=== PATIENT | female | born 1945 | race Caucasian/White ===

== ENCOUNTER 2017-11-06 17:45 | Emergency (ER) | payer MEDICARE ==
[2017-11-06 18:40] LABS: ADD MAN DIFF? NO
[2017-11-06 18:44] LABS: BASO # 0.1 x10^3/uL (0.0-0.2); BASO % 1 % (0-3); EOS # 0.2 x10^3/uL (0.0-0.7); EOS % 3 % (0-3); HEMATOCRIT 40.1 % (36.0-47.0); HEMOGLOBIN 13.7 g/dL (12.0-15.5); LYMPH # 2.2 x10^3/uL (1.0-4.8); LYMPH % 35 % (24-48); MEAN CORPUSCULAR HEMOGLOBIN 32 pg (25-35); MEAN CORPUSCULAR HGB CONC 34 g/dL (31-37); MEAN CORPUSCULAR VOLUME 93 fL (79-100); MONO # 0.5 x10^3/uL (0.0-1.1); MONO % 8 % (0-9); NEUT # 3.3 x10^3uL (1.8-7.7); NEUT % 53 % (31-73); PLATELET COUNT 270 x10^3/uL (140-400); RED BLOOD COUNT 4.29 x10^6/uL (3.50-5.40); RED CELL DISTRIBUTION WIDTH 14.3 % (11.5-14.5); WHITE BLOOD COUNT 6.4 x10^3/uL (4.0-11.0)
[2017-11-06 18:53] LABS: ANION GAP 11 (6-14); BLOOD UREA NITROGEN 25 mg/dL (7-20); BUN/CREATININE RATIO 28 (6-20); CALCIUM 9.2 mg/dL (8.5-10.1); CARBON DIOXIDE 27 mmol/L (21-32); CHLORIDE 104 mmol/L (98-107); CREATININE 0.9 mg/dL (0.6-1.0); GFR 61.7; GLUCOSE 95 mg/dL (70-99); POTASSIUM 3.6 mmol/L (3.5-5.1); SODIUM 142 mmol/L (136-145)
[2017-11-06 18:56] LABS: PARTIAL THROMBOPLASTIN TIME 35 SEC (24-38); PROTHROMBIN TIME PATIENT 12.9 SEC (11.7-14.0)
[2017-11-06 19:01] LABS: ALBUMIN 3.7 g/dL (3.4-5.0); ALBUMIN/GLOBULIN RATIO 1.1 (1.0-1.7); ALK PHOS 56 U/L (46-116); ALT (SGPT) 29 U/L (14-59); AST (SGOT) 24 U/L (15-37); MAGNESIUM 2.2 mg/dL (1.8-2.4); TOTAL BILIRUBIN 0.3 mg/dL (0.2-1.0); TOTAL PROTEIN 7.2 g/dL (6.4-8.2)
[2017-11-06 19:01] LABS: TROPONINI < 0.017 ng/mL (0.000-0.055)
[2017-11-06 19:07] LABS: CKMB INDEX 3.8 % (0-4); CKMB MASS 5.5 ng/mL (0.0-3.6); CREATINE KINASE 144 U/L (26-192)
== END 2017-11-06 20:09 | disposition home or self-care (01) ==
LOC: ER 17:45
DX: I10 Essential (primary) hypertension (principal); Z88.0 Allergy status to penicillin
CPT/HCPCS: 36415; 80053; 82553; 83735; 84484; 85025; 85610; 85730; 93005; 99285-25

== ENCOUNTER 2019-11-15 21:31 | Inpatient (IN) | payer MEDICARE ==
[~2019-11-15] VITALS: Ht 157.5 cm; Wt 49.7 kg
[2019-11-15 21:59] LABS: BASO # 0.1 x10^3/uL (0.0-0.2); BASO % 2 % (0-3); EOS # 0.3 x10^3/uL (0.0-0.7); EOS % 5 % (0-3); HEMATOCRIT 36.2 % (36.0-47.0); HEMOGLOBIN 12.1 g/dL (12.0-15.5); LYMPH # 1.9 x10^3/uL (1.0-4.8); LYMPH % 35 % (24-48); MEAN CORPUSCULAR HEMOGLOBIN 31 pg (25-35); MEAN CORPUSCULAR HGB CONC 34 g/dL (31-37); MEAN CORPUSCULAR VOLUME 93 fL (79-100); MONO # 0.5 x10^3/uL (0.0-1.1); MONO % 10 % (0-9); NEUT # 2.6 x10^3/uL (1.8-7.7); NEUT % 48 % (31-73); PLATELET COUNT 315 x10^3/uL (140-400); RED BLOOD COUNT 3.88 x10^6/uL (3.50-5.40); RED CELL DISTRIBUTION WIDTH 14.1 % (11.5-14.5); WHITE BLOOD COUNT 5.4 x10^3/uL (4.0-11.0)
[2019-11-15] MEDS ORDERED: ONDANSETRON PF 4 MG/2 ML VIAL. IVP ONE (22:00)
[2019-11-15] MEDS ORDERED: MORPHINE SULFATE 2 MG/ML VIAL. IV ONE (22:00)
[2019-11-15 22:09] LABS: CALCIUM 8.5 mg/dL (8.5-10.1); CREATININE 0.9 mg/dL (0.6-1.0); GFR 61.4; POTASSIUM 3.9 mmol/L (3.5-5.1)
[2019-11-15 22:11] LABS: PROTHROMBIN TIME PATIENT 12.4 SEC (11.7-14.0)
[2019-11-15 22:14] LABS: ALBUMIN 3.2 g/dL (3.4-5.0); TOTAL BILIRUBIN 0.2 mg/dL (0.2-1.0); TOTAL PROTEIN 6.4 g/dL (6.4-8.2)
--- NOTE | 2019-11-15 22:16 | PHYS DOC ---
Past Medical History Past Medical History: Hypertension Past Surgical History: Appendectomy, Hysterectomy, Other Additional Past Surgical Histo: L wrist frx repair Smoking Status: Current Every Day Smoker Alcohol Use: Rarely Drug Use: None General Adult EDM: Chief Complaint: MECHANICAL FALL HPI: HPI: Patient is a 74 year old female who presents with a mechanical fall and injury to left hip. Patient says she lost her balance and fell and hit her left hip. Patient did not hit her head or loss of consciousness. Patient complains of moderate at rest and severe in intensity left hip pain with range of motion. Pain is nonradiating. Pain is described as throbbing. No other injuries. Review of Systems: Review of Systems: Constitutional: Denies fever or chills. [] Eyes: Denies change in visual acuity. [] HENT: Denies nasal congestion or sore throat. [] Respiratory: Denies cough or shortness of breath. [] Cardiovascular: Denies chest pain or edema. [] GI: Denies abdominal pain, nausea, vomiting, bloody stools or diarrhea. [] : Denies dysuria. [] Musculoskeletal: Denies back pain but complains of left hip pain Integument: Denies rash. [] Neurologic: Denies headache, focal weakness or sensory changes. [] Endocrine: Denies polyuria or polydipsia. [] Lymphatic: Denies swollen glands. [] Psychiatric: Denies depression or anxiety. [] Heart Score: Risk Factors: Risk Factors: DM, Current or recent (<one month) smoker, HTN, HLP, family history of CAD, obesity. Risk Scores: Score 0 - 3: 2.5% MACE over next 6 weeks - Discharge Home Score 4 - 6: 20.3% MACE over next 6 weeks - Admit for Clinical Observation Score 7 - 10: 72.7% MACE over next 6 weeks - Early Invasive Strategies Current Medications: Current Medications Medications (Trade) Dose Ordered Sig/Scott Start Time Stop Time Status Last Admin Dose Admin Morphine Sulfate (Morphine Sulfate) 2 mg 1X ONCE 11/15/19 22:00 11/15/19 22:01 DC Ondansetron HCl (Zofran) 4 mg 1X ONCE 11/15/19 22:00 11/15/19 22:01 DC Allergies: Allergies: Allergies Coded Allergies Type Severity Reaction Last Updated Verified Penicillins Allergy Intermediate hives 11/06/17 Yes Physical Exam: PE: Constitutional: Well developed, well nourished, no acute distress, non-toxic appearance. [] HENT: Normocephalic, atraumatic, bilateral external ears normal, no trismus, nose normal. [] Eyes: PERRLA, EOMI, conjunctiva normal, no discharge. [] Neck: Normal range of motion, no tenderness, supple, no stridor. [] Cardiovascular:Heart rate regular rhythm, peripheral pulses intact Lungs & Thorax: Bilateral breath sounds clear to auscultation [] Abdomen: Bowel sounds normal, soft, no tenderness, no masses, no pulsatile rafi s. [] Skin: Warm, dry, no erythema, no rash. [] Back: No tenderness, no CVA tenderness. [] Extremities: Tenderness and limited range of motion to the left neurovascular intact distally Neurologic: Alert and oriented X 3, normal motor function, normal sensory function, no focal deficits noted. [] Psychologic: Affect normal, judgement normal, mood normal. [] Current Patient Data: Labs: Laboratory Tests Test 11/15/19 21:40 White Blood Count 5.4 x10^3/uL (4.0-11.0) Red Blood Count 3.88 x10^6/uL (3.50-5.40) Hemoglobin 12.1 g/dL (12.0-15.5) Hematocrit 36.2 % (36.0-47.0) Mean Corpuscular Volume 93 fL (79-100) Mean Corpuscular Hemoglobin 31 pg (25-35) Mean Corpuscular Hemoglobin Concent 34 g/dL (31-37) Red Cell Distribution Width 14.1 % (11.5-14.5) Platelet Count 315 x10^3/uL (140-400) Neutrophils (%) (Auto) 48 % (31-73) Lymphocytes (%) (Auto) 35 % (24-48) Monocytes (%) (Auto) 10 % (0-9) H Eosinophils (%) (Auto) 5 % (0-3) H Basophils (%) (Auto) 2 % (0-3) Neutrophils # (Auto) 2.6 x10^3/uL (1.8-7.7) Lymphocytes # (Auto) 1.9 x10^3/uL (1.0-4.8) Monocytes # (Auto) 0.5 x10^3/uL (0.0-1.1) Eosinophils # (Auto) 0.3 x10^3/uL (0.0-0.7) Basophils # (Auto) 0.1 x10^3/uL (0.0-0.2) Prothrombin Time 12.4 SEC (11.7-14.0) Prothrombin Time INR 1.0 (0.8-1.1) Activated Partial Thromboplast Time 31 SEC (24-38) Sodium Level 144 mmol/L (136-145) Potassium Level 3.9 mmol/L (3.5-5.1) Chloride Level 109 mmol/L (98-107) H Carbon Dioxide Level 27 mmol/L (21-32) Anion Gap 8 (6-14) Blood Urea Nitrogen 24 mg/dL (7-20) H Creatinine 0.9 mg/dL (0.6-1.0) Estimated GFR (Cockcroft-Gault) 61.4 BUN/Creatinine Ratio 27 (6-20) H Glucose Level 105 mg/dL (70-99) H Calcium Level 8.5 mg/dL (8.5-10.1) Total Bilirubin Pending Aspartate Amino Transferase (AST) Pending Alanine Aminotransferase (ALT) Pending Alkaline Phosphatase Pending Total Protein Pending Albumin Pending Albumin/Globulin Ratio Pending Laboratory Tests 11/15/19 21:40 Laboratory Tests 11/15/19 21:40 Vital Signs: Vital Signs Date Time Temp Pulse Resp B/P (MAP) Pulse Ox O2 Delivery O2 Flow Rate FiO2 11/15/19 22:40 24 97 Room Air 11/15/19 21:35 81 22 161/86 (111) 98 Room Air EKG: EKG: [] EKG interpreted by pr normal sinus rhythm with a rate of 83 normal axis normal intervals normal ST segments Radiology/Procedures: Radiology/Procedures: [][facility] [address] [place] [address] IMAGING REPORT Signed PATIENT: EDMAR LUZ ACCOUNT: [id number] : 1945 LOCATION: ER AGE: 74 SEX: F EXAM STATUS: REG ER ORD. PHYSICIAN: ALVAREZ HALL MD REASON: fall PROCEDURE: HIP LEFT 2V WITH PELVIS Exam: Pelvis with left hip 2 views. Left femur 2 views INDICATION: Fall TECHNIQUE: Frontal view of the pelvis with frontal and frog-leg lateral views the left hip. Frontal and lateral views the left femur Comparisons: None FINDINGS: There is a comminuted intertrochanteric left hip fracture. Overlying soft tissues demonstrates some soft tissue swelling. No other fractures are seen. Bone mineralization is normal. Joint spaces are well-maintained. Femur: Redemonstration of the comminuted intertrochanteric hip fracture. Otherwise, no other fractures are seen. Joint spaces are well-maintained. Soft tissues are unremarkable. IMPRESSION: 1. Comminuted intertrochanteric left hip fracture. 2. No other fracture identified at the pelvis or left femur. Electronically signed by: Samira Mena MD (11/15/2019 10:27 PM) [id number] DICTATED and SIGNED BY: SAMIRA MENA MD DATE: 11/15/192226 [facility] [address] [place] [address] IMAGING REPORT Signed PATIENT: EDMAR LUZ ACCOUNT: [id number] : 1945 LOCATION: ER AGE: 74 SEX: F EXAM STATUS: REG ER ORD. PHYSICIAN: ALVAREZ HALL MD REASON: fall PROCEDURE: PORTABLE CHEST 1V Exam: Chest one view INDICATION: Fall TECHNIQUE: Frontal view of the chest Comparisons: None FINDINGS: The cardiomediastinal silhouette and pulmonary vessels are within normal limits. The lung and pleural spaces are clear. IMPRESSION: No acute cardiopulmonary process. Electronically signed by: Samira Mena MD (11/15/2019 10:28 PM) [id number] DICTATED and SIGNED BY: SAMIRA MENA MD DATE: 11/15/192227 Course & Med Decision Making: Course & Med Decision Making Pertinent Labs and Imaging studies reviewed. (See chart for details) [] 74-year-old female presents with mechanical fall. Patient has a intertrochanteric hip fracture on the left. Patient will be admitted to Dr. Gabriel, has been consulted. Kimmie Disclaimer: Kimmie Disclaimer: This electronic medical record was generated, in whole or in part, using a voice recognition dictation system. Departure Departure Impression: Primary Impression: Intertrochanteric fracture of left femur Disposition: ADMITTED INPATIENT Admitting Physician: MALDONADO WALTERS) Condition: STABLE Referrals: UNKNOWN PCP NAME (PCP) Justicifation of Admission Dx: Justifications for Admission: Justification of Admission Dx: Yes ALVAREZ HALL MD Nov 15, 2019 22:16
[2019-11-15] MEDS ORDERED: ONDANSETRON PF 4 MG/2 ML VIAL. IV PRN (22:30)
--- NOTE | 2019-11-15 22:31 | RAD ---
Exam: Pelvis with left hip 2 views. Left femur 2 views INDICATION: Fall TECHNIQUE: Frontal view of the pelvis with frontal and frog-leg lateral views the left hip. Frontal and lateral views the left femur Comparisons: None FINDINGS: There is a comminuted intertrochanteric left hip fracture. Overlying soft tissues demonstrates some soft tissue swelling. No other fractures are seen. Bone mineralization is normal. Joint spaces are well-maintained. Femur: Redemonstration of the comminuted intertrochanteric hip fracture. Otherwise, no other fractures are seen. Joint spaces are well-maintained. Soft tissues are unremarkable. IMPRESSION: 1. Comminuted intertrochanteric left hip fracture. 2. No other fracture identified at the pelvis or left femur. Electronically signed by: Samira Blackburn MD (11/15/2019 10:27 PM) [id number]
--- NOTE | 2019-11-15 22:31 | RAD ---
Exam: Chest one view INDICATION: Fall TECHNIQUE: Frontal view of the chest Comparisons: None FINDINGS: The cardiomediastinal silhouette and pulmonary vessels are within normal limits. The lung and pleural spaces are clear. IMPRESSION: No acute cardiopulmonary process. Electronically signed by: Samira Blackburn MD (11/15/2019 10:28 PM) [id number]
[2019-11-15] MEDS ORDERED: amLODIPine BESYLATE 5 MG TABLET PO ONE (23:00)
[2019-11-15] MEDS ORDERED: LISINOPRIL 10 MG TABLET PO ONE (23:00)
[2019-11-16] VITALS (12 sets, daily range): BP systolic 82–132; BP diastolic 34–62
--- NOTE | 2019-11-16 00:20 | NUR ---
The patient, EDMAR LUZ, 74 y/o, F admitted by SARKIS CARDENAS MD, was given written information regarding hospital policies, unit procedures and contact persons. Patient admitted with left hip communicated intertrochanteric fracture. Bond traction applied as per order. Patient denies pain at this time. Patient alert and oriented x 4. Patient oriented to room, call light, bed and POC. Call light in reach, Patient verbalized understanding of need to call for help. See admission assessment/documentation. Valuables were checked and documented.
[2019-11-16] MEDS: IV NORMAL SALINE 1000ML BAG 1,000 ML IV SCH ×4 (02:29→19:00)
[2019-11-16] MEDS: MORPHINE SULFATE 2 MG/ML VIAL. IV PRN ×2 (02:40→06:55)
--- NOTE | 2019-11-16 07:02 | PDOC2 ---
CONSULT Date of Consult Date of Consult DATE: 11/16/19 TIME: 07:00 Reason for Consult Reason for Consult: Left hip pain, left hip fracture Identification/Chief Complaint Chief Complaint Left hip pain after a fall Source Source: Chart review, Patient History of Present Illness Reason for Visit: This 74-year-old woman was at home, and simply slipped and fell. No loss of consciousness or head injury. She landed on her back and hip, had immediate hip pain, was brought to the emergency room. X-rays show an intertrochanteric hip fracture with comminution. She uses a cane but does not use a walker. She was here with her and with her daughter. She had no complaints except for the hip pain. Pain is described as throbbing and is worse with any attempted motion. Past Medical History Past Medical History She was a smoker for many years but quit in September 2018. She was diagnosed with COPD, and at that time she also had pneumonia. Pulmonary: COPD Past Surgical History Past Surgical History Wrist fracture surgery. Past Surgical History: Hysterectomy Social History Social History She quit smoking last year. She lives at home with her . Quit Lives: with Family Current Problem List Problem List Problems Medical Problems: (1) Intertrochanteric fracture of left femur Status: Acute Current Medications Current Medications Current Medications Morphine Sulfate (Morphine Sulfate) 2 mg 1X ONCE IV Last administered on 11/15/19at 22:40; Start 11/15/19 at 22:00; Stop 11/15/19 at 22:01; Status DC Ondansetron HCl (Zofran) 4 mg 1X ONCE IVP Last administered on 11/15/19at 22:37; Start 11/15/19 at 22:00; Stop 11/15/19 at 22:01; Status DC Lisinopril (Prinivil) 40 mg 1X ONCE PO ; Start 11/15/19 at 23:00; Stop 11/15/19 at 23:01; Status DC Amlodipine Besylate (Norvasc) 5 mg 1X ONCE PO ; Start 11/15/19 at 23:00; Stop 11/15/19 at 23:01; Status DC Ondansetron HCl (Zofran) 4 mg PRN Q8HRS PRN IV NAUSEA/VOMITING 1ST CHOICE; Start 11/15/19 at 22:30; Stop 11/16/19 at 22:29 Morphine Sulfate (Morphine Sulfate) 2 mg PRN Q2HR PRN IV SEVERE PAIN 7-10 Last administered on 11/16/19at 06:55; Start 11/15/19 at 22:30; Stop 11/16/19 at 22:29 Sodium Chloride 1,000 ml @ 100 mls/hr Q10H IV Last administered on 11/16/19at 02:29; Start 11/15/19 at 23:00; Stop 11/16/19 at 22:59 Allergies Allergies: Coded Allergies: Penicillins (Verified Allergy, Intermediate, hives, 11/06/17) naproxen (Verified Adverse Reaction, Unknown, 11/16/19) ROS General: No: Night Sweats, Fatigue PSYCHOLOGICAL ROS: No: Disorientation Eyes: No Double vision HEENT: No: Heacaches Hematological and Lymphatic: No: Blood Clots Respiratory: No: Cough, Shortness of breath, SOB with excertion Cardiovascular: No Chest Pain Gastrointestinal: Yes Diarrhea (She takes some sort of oral supplement or medication to help prevent diarrhea); No Nausea, No Vomiting Genitourinary: No Dysuria, No Hematuria Musculoskeletal: Yes Gait Disturbance, Yes Joint Pain Neurological: No Confusion Physical Exam General: Alert, Cooperative HEENT: Atraumatic Lungs: Normal air movement Heart: Regular rate Abdomen: Soft Extremities: No clubbing, No cyanosis, Normal pulses, Other (There is tenderness of the left hip. There is pain with any attempted motion. The skin is intact without ecchymosis. The extremity is shortened and externally rotated. Light touch sensation is intact at the foot and toes. Capillary refill and pulses are intact without evidence of ischemia. Slight dorsiflexion and plantarflexion are possible without evidence of sciatic nerve injury.) Skin: No significant lesion Neuro: Normal speech, Normal tone, Sensation intact Psych/Mental Status: Mood NL Vitals VITALS Vital Signs Date Time Temp Pulse Resp B/P (MAP) Pulse Ox O2 Delivery O2 Flow Rate FiO2 11/16/19 06:55 18 Room Air 11/16/19 03:00 98.6 80 109/46 (67) 94 98.6 Labs Labs Laboratory Tests Test 11/15/19 21:40 11/15/19 22:45 White Blood Count 5.4 x10^3/uL (4.0-11.0) Red Blood Count 3.88 x10^6/uL (3.50-5.40) Hemoglobin 12.1 g/dL (12.0-15.5) Hematocrit 36.2 % (36.0-47.0) Mean Corpuscular Volume 93 fL (79-100) Mean Corpuscular Hemoglobin 31 pg (25-35) Mean Corpuscular Hemoglobin Concent 34 g/dL (31-37) Red Cell Distribution Width 14.1 % (11.5-14.5) Platelet Count 315 x10^3/uL (140-400) Neutrophils (%) (Auto) 48 % (31-73) Lymphocytes (%) (Auto) 35 % (24-48) Monocytes (%) (Auto) 10 % (0-9) Eosinophils (%) (Auto) 5 % (0-3) Basophils (%) (Auto) 2 % (0-3) Neutrophils # (Auto) 2.6 x10^3/uL (1.8-7.7) Lymphocytes # (Auto) 1.9 x10^3/uL (1.0-4.8) Monocytes # (Auto) 0.5 x10^3/uL (0.0-1.1) Eosinophils # (Auto) 0.3 x10^3/uL (0.0-0.7) Basophils # (Auto) 0.1 x10^3/uL (0.0-0.2) Prothrombin Time 12.4 SEC (11.7-14.0) Prothromb Time International Ratio 1.0 (0.8-1.1) Activated Partial Thromboplast Time 31 SEC (24-38) Sodium Level 144 mmol/L (136-145) Potassium Level 3.9 mmol/L (3.5-5.1) Chloride Level 109 mmol/L (98-107) Carbon Dioxide Level 27 mmol/L (21-32) Anion Gap 8 (6-14) Blood Urea Nitrogen 24 mg/dL (7-20) Creatinine 0.9 mg/dL (0.6-1.0) Estimated GFR (Cockcroft-Gault) 61.4 BUN/Creatinine Ratio 27 (6-20) Glucose Level 105 mg/dL (70-99) Calcium Level 8.5 mg/dL (8.5-10.1) Total Bilirubin 0.2 mg/dL (0.2-1.0) Aspartate Amino Transf (AST/SGOT) 21 U/L (15-37) Alanine Aminotransferase (ALT/SGPT) 34 U/L (14-59) Alkaline Phosphatase 49 U/L (46-116) Total Protein 6.4 g/dL (6.4-8.2) Albumin 3.2 g/dL (3.4-5.0) Albumin/Globulin Ratio 1.0 (1.0-1.7) SARS-CoV-2 Antigen (Rapid) Negative (NEGATIVE) Laboratory Tests Test 11/15/19 21:40 11/15/19 22:45 White Blood Count 5.4 x10^3/uL (4.0-11.0) Red Blood Count 3.88 x10^6/uL (3.50-5.40) Hemoglobin 12.1 g/dL (12.0-15.5) Hematocrit 36.2 % (36.0-47.0) Mean Corpuscular Volume 93 fL (79-100) Mean Corpuscular Hemoglobin 31 pg (25-35) Mean Corpuscular Hemoglobin Concent 34 g/dL (31-37) Red Cell Distribution Width 14.1 % (11.5-14.5) Platelet Count 315 x10^3/uL (140-400) Neutrophils (%) (Auto) 48 % (31-73) Lymphocytes (%) (Auto) 35 % (24-48) Monocytes (%) (Auto) 10 % (0-9) Eosinophils (%) (Auto) 5 % (0-3) Basophils (%) (Auto) 2 % (0-3) Neutrophils # (Auto) 2.6 x10^3/uL (1.8-7.7) Lymphocytes # (Auto) 1.9 x10^3/uL (1.0-4.8) Monocytes # (Auto) 0.5 x10^3/uL (0.0-1.1) Eosinophils # (Auto) 0.3 x10^3/uL (0.0-0.7) Basophils # (Auto) 0.1 x10^3/uL (0.0-0.2) Prothrombin Time 12.4 SEC (11.7-14.0) Prothromb Time International Ratio 1.0 (0.8-1.1) Activated Partial Thromboplast Time 31 SEC (24-38) Sodium Level 144 mmol/L (136-145) Potassium Level 3.9 mmol/L (3.5-5.1) Chloride Level 109 mmol/L (98-107) Carbon Dioxide Level 27 mmol/L (21-32) Anion Gap 8 (6-14) Blood Urea Nitrogen 24 mg/dL (7-20) Creatinine 0.9 mg/dL (0.6-1.0) Estimated GFR (Cockcroft-Gault) 61.4 BUN/Creatinine Ratio 27 (6-20) Glucose Level 105 mg/dL (70-99) Calcium Level 8.5 mg/dL (8.5-10.1) Total Bilirubin 0.2 mg/dL (0.2-1.0) Aspartate Amino Transf (AST/SGOT) 21 U/L (15-37) Alanine Aminotransferase (ALT/SGPT) 34 U/L (14-59) Alkaline Phosphatase 49 U/L (46-116) Total Protein 6.4 g/dL (6.4-8.2) Albumin 3.2 g/dL (3.4-5.0) Albumin/Globulin Ratio 1.0 (1.0-1.7) SARS-CoV-2 Antigen (Rapid) Negative (NEGATIVE) Images Images Report reviewed, images independently reviewed. Slightly displaced left hip intertrochanteric fracture. Some comminution. [facility] [address] [place] [address] IMAGING REPORT Signed PATIENT: EDMAR LUZ ACCOUNT: [id number] : 1945 LOCATION: ER AGE: 74 SEX: F EXAM STATUS: REG ER ORD. PHYSICIAN: ALVAREZ HALL MD REASON: fall PROCEDURE: HIP LEFT 2V WITH PELVIS Exam: Pelvis with left hip 2 views. Left femur 2 views INDICATION: Fall TECHNIQUE: Frontal view of the pelvis with frontal and frog-leg lateral views the left hip. Frontal and lateral views the left femur Comparisons: None FINDINGS: There is a comminuted intertrochanteric left hip fracture. Overlying soft tissues demonstrates some soft tissue swelling. No other fractures are seen. Bone mineralization is normal. Joint spaces are well-maintained. Femur: Redemonstration of the comminuted intertrochanteric hip fracture. Otherwise, no other fractures are seen. Joint spaces are well-maintained. Soft tissues are unremarkable. IMPRESSION: 1. Comminuted intertrochanteric left hip fracture. 2. No other fracture identified at the pelvis or left femur. Electronically signed by: Samira Mena MD (11/15/2019 10:27 PM) [id number] DICTATED and SIGNED BY: SAMIAR MENA MD DATE: 11/15/192226 Assessment/Plan Assessment/Plan We discussed operative versus nonoperative management. I recommend surgery with intramedullary nail. The alternative to surgery is bedrest which is generally not well tolerated and has high risks of continued pain, bedsores, pneumonia, and blood clots. Surgery is likely safer than nonoperative treatment. Risks of intramedullary nailing would include malunion, nonunion or hardware failure requiring additional surgery, bleeding, blood clots, neurovascular injury, or other potential surgical or anesthetic complications. All of her questions about surgery were answered and she desires to proceed. CAROLYNN RUFF MD Nov 16, 2019 07:02
--- NOTE | 2019-11-16 07:41 | EKG ---
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
[2019-11-16 07:43] LABS: PROTHROMBIN TIME PATIENT 13.2 SEC (11.7-14.0)
--- NOTE | 2019-11-16 07:48 | NUR ---
Unknown action on meds dated 11/14 at 2300. Meds removed from JUN.
--- NOTE | 2019-11-16 09:35 | NUR ---
SW following. Discussed with RN, pt from home with , having surgery today. RN reported pt had stated she would prefer to go home with home health at discharge. SW will continue to follow.
[2019-11-16] MEDS ORDERED: LIDOCAINE 2% PF 5 ML VIAL. ONE (10:51)
[2019-11-16] MEDS ORDERED: PROPOFOL 10 MG/ML (20ML) VIAL. IV ONE ×2 (10:51→12:02)
[2019-11-16] MEDS ORDERED: fentaNYL PF VIAL 100 MCG/2 ML VIAL ONE ×2 (10:51→13:59)
--- NOTE | 2019-11-16 11:27 | PDOC1 ---
History and Physical Date of Admission Date of Admission DATE: 11/16/19 TIME: 11:26 Identification/Chief Complaint Chief Complaint SEEN IN ER WITH ACUTE HIP FRACTURE 74 year old female who presents with a mechanical fall and injury to left hip. // she lost her balance and fell and hit her left hip. Patient did not hit her head or loss of consciousness. complains of moderate at rest and severe in intensity left hip pain with range of motion. Pain is described as throbbing. No other injuries. Past Medical History Past Medical History Past Medical History Past Medical History: Hypertension Past Surgical History: Appendectomy, Hysterectomy, Other Additional Past Surgical Histo: L wrist frx repair Smoking Status: Current Every Day Smoker Alcohol Use: Rarely Drug Use: None fhx copd, HTN Cardiovascular: HTN Endocrine: No pertinent hx Family History Family History: Hypertension Social History Smoke: <1 pack per day ALCOHOL: occassional Drugs: None Current Problem List Problem List Problems Medical Problems: (1) Intertrochanteric fracture of left femur Status: Acute Current Medications Current Medications Current Medications Morphine Sulfate (Morphine Sulfate) 2 mg 1X ONCE IV Last administered on 11/15/19at 22:40; Start 11/15/19 at 22:00; Stop 11/15/19 at 22:01; Status DC Ondansetron HCl (Zofran) 4 mg 1X ONCE IVP Last administered on 11/15/19at 22:37; Start 11/15/19 at 22:00; Stop 11/15/19 at 22:01; Status DC Lisinopril (Prinivil) 40 mg 1X ONCE PO ; Start 11/15/19 at 23:00; Stop 11/15/19 at 23:01; Status DC Amlodipine Besylate (Norvasc) 5 mg 1X ONCE PO ; Start 11/15/19 at 23:00; Stop 11/15/19 at 23:01; Status DC Ondansetron HCl (Zofran) 4 mg PRN Q8HRS PRN IV NAUSEA/VOMITING 1ST CHOICE; Start 11/15/19 at 22:30; Stop 11/16/19 at 22:29 Morphine Sulfate (Morphine Sulfate) 2 mg PRN Q2HR PRN IV SEVERE PAIN 7-10 Last administered on 11/16/19at 06:55; Start 11/15/19 at 22:30; Stop 11/16/19 at 22:29 Sodium Chloride 1,000 ml @ 100 mls/hr Q10H IV Last administered on 11/16/19at 02 :29; Start 11/15/19 at 23:00; Stop 11/16/19 at 22:59 Morphine Sulfate 5 mg/Ketorolac Tromethamine 30 mg/Ropivacaine 60 ml/Epinephrine HCl 0.5 mg/Sodium Chloride 100 ml @ 100 mls/hr 1X ONCE INT ART ; Start 11/16/19 at 12:00; Stop 11/16/19 at 12:59 Propofol (Diprivan) 200 mg STK-MED ONCE IV ; Start 11/16/19 at 10:51; Stop 11/16/19 at 10:51; Status DC Lidocaine HCl (Lidocaine Pf 2% Vial) 5 ml STK-MED ONCE .ROUTE ; Start 11/16/19 at 10:51; Stop 11/16/19 at 10:51; Status DC Fentanyl Citrate (Fentanyl 2ml Vial) 100 mcg STK-MED ONCE .ROUTE ; Start 11/16/19 at 10:51; Stop 11/16/19 at 10:51; Status DC Allergies Allergies: Coded Allergies: Penicillins (Verified Allergy, Intermediate, hives, 11/06/17) naproxen (Verified Adverse Reaction, Unknown, 11/16/19) ROS Review of System Review of Systems: Constitutional: Denies fever or chills. [] Eyes: Denies change in visual acuity. [] HENT: Denies nasal congestion or sore throat. [] Respiratory: Denies cough or shortness of breath. [] Cardiovascular: Denies chest pain or edema. [] GI: Denies abdominal pain, nausea, vomiting, bloody stools or diarrhea. [] : Denies dysuria. [] Musculoskeletal: Denies back pain but complains of left hip pain Integument: Denies rash. [] Neurologic: Denies headache, focal weakness or sensory changes. [] Endocrine: Denies polyuria or polydipsia. [] Lymphatic: Denies swollen glands. [] Psychiatric: Denies depression or anxiety. [] 14 PT ROS OTHERWISE NEG Musculoskeletal: Yes Gait Disturbance, Yes Joint Pain Physical Exam Physical Exam Physical Exam: PE: Constitutional: Well developed, well nourished, no acute distress, non-toxic appearance. [] HENT: Normocephalic, atraumatic, bilateral external ears normal, no trismus, nose normal. [] Eyes: PERRLA, EOMI, conjunctiva normal, no discharge. [] Neck: Normal range of motion, no tenderness, supple, no stridor. [] Cardiovascular:Heart rate regular rhythm, peripheral pulses intact Lungs & Thorax: Bilateral breath sounds clear to auscultation [] Abdomen: Bowel sounds normal, soft, no tenderness, no masses, no pulsatile masses. [] Skin: Warm, dry, no erythema, no rash. [] Back: No tenderness, no CVA tenderness. [] Extremities: Tenderness and limited range of motion to the left neurovascular intact distally Neurologic: Alert and oriented X 3, normal motor function, normal sensory function, no focal deficits noted. [] Psychologic: Affect normal, judgement normal, mood normal. [] General: Alert, Oriented X3, Cooperative, No acute distress HEENT: EOMI, Mucous membr. moist/pink Lungs: Clear to auscultation, Normal air movement Heart: RRR Breasts: Not examined Abdomen: Normal bowel sounds, Soft Rectal Exam: not examined PELVIC: Examination not indicated Extremities: No cyanosis Neuro: Normal speech, Cranial nerves 3-12 NL Psych/Mental Status: Mental status NL, Mood NL Vitals Vitals Vital Signs Date Time Temp Pulse Resp B/P (MAP) Pulse Ox O2 Delivery O2 Flow Rate FiO2 11/16/19 10:57 100.0 17 18 132/62 (85) 96 Room Air 100.0 Labs Labs Laboratory Tests Test 11/15/19 21:40 11/15/19 22:45 11/16/19 07:20 White Blood Count 5.4 x10^3/uL (4.0-11.0) Red Blood Count 3.88 x10^6/uL (3.50-5.40) Hemoglobin 12.1 g/dL (12.0-15.5) Hematocrit 36.2 % (36.0-47.0) Mean Corpuscular Volume 93 fL (79-100) Mean Corpuscular Hemoglobin 31 pg (25-35) Mean Corpuscular Hemoglobin Concent 34 g/dL (31-37) Red Cell Distribution Width 14.1 % (11.5-14.5) Platelet Count 315 x10^3/uL (140-400) Neutrophils (%) (Auto) 48 % (31-73) Lymphocytes (%) (Auto) 35 % (24-48) Monocytes (%) (Auto) 10 % (0-9) Eosinophils (%) (Auto) 5 % (0-3) Basophils (%) (Auto) 2 % (0-3) Neutrophils # (Auto) 2.6 x10^3/uL (1.8-7.7) Lymphocytes # (Auto) 1.9 x10^3/uL (1.0-4.8) Monocytes # (Auto) 0.5 x10^3/uL (0.0-1.1) Eosinophils # (Auto) 0.3 x10^3/uL (0.0-0.7) Basophils # (Auto) 0.1 x10^3/uL (0.0-0.2) Prothrombin Time 12.4 SEC (11.7-14.0) 13.2 SEC (11.7-14.0) Prothromb Time International Ratio 1.0 (0.8-1.1) 1.0 (0.8-1.1) Activated Partial Thromboplast Time 31 SEC (24-38) Sodium Level 144 mmol/L (136-145) Potassium Level 3.9 mmol/L (3.5-5.1) Chloride Level 109 mmol/L (98-107) Carbon Dioxide Level 27 mmol/L (21-32) Anion Gap 8 (6-14) Blood Urea Nitrogen 24 mg/dL (7-20) Creatinine 0.9 mg/dL (0.6-1.0) Estimated GFR (Cockcroft-Gault) 61.4 BUN/Creatinine Ratio 27 (6-20) Glucose Level 105 mg/dL (70-99) Calcium Level 8.5 mg/dL (8.5-10.1) Total Bilirubin 0.2 mg/dL (0.2-1.0) Aspartate Amino Transf (AST/SGOT) 21 U/L (15-37) Alanine Aminotransferase (ALT/SGPT) 34 U/L (14-59) Alkaline Phosphatase 49 U/L (46-116) Total Protein 6.4 g/dL (6.4-8.2) Albumin 3.2 g/dL (3.4-5.0) Albumin/Globulin Ratio 1.0 (1.0-1.7) SARS-CoV-2 Antigen (Rapid) Negative (NEGATIVE) 25-Hydroxy Vitamin D Total 33.5 ng/mL (30-100) Laboratory Tests Test 11/15/19 21:40 11/15/19 22:45 11/16/19 07:20 White Blood Count 5.4 x10^3/uL (4.0-11.0) Red Blood Count 3.88 x10^6/uL (3.50-5.40) Hemoglobin 12.1 g/dL (12.0-15.5) Hematocrit 36.2 % (36.0-47.0) Mean Corpuscular Volume 93 fL (79-100) Mean Corpuscular Hemoglobin 31 pg (25-35) Mean Corpuscular Hemoglobin Concent 34 g/dL (31-37) Red Cell Distribution Width 14.1 % (11.5-14.5) Platelet Count 315 x10^3/uL (140-400) Neutrophils (%) (Auto) 48 % (31-73) Lymphocytes (%) (Auto) 35 % (24-48) Monocytes (%) (Auto) 10 % (0-9) Eosinophils (%) (Auto) 5 % (0-3) Basophils (%) (Auto) 2 % (0-3) Neutrophils # (Auto) 2.6 x10^3/uL (1.8-7.7) Lymphocytes # (Auto) 1.9 x10^3/uL (1.0-4.8) Monocytes # (Auto) 0.5 x10^3/uL (0.0-1.1) Eosinophils # (Auto) 0.3 x10^3/uL (0.0-0.7) Basophils # (Auto) 0.1 x10^3/uL (0.0-0.2) Prothrombin Time 12.4 SEC (11.7-14.0) 13.2 SEC (11.7-14.0) Prothromb Time International Ratio 1.0 (0.8-1.1) 1.0 (0.8-1.1) Activated Partial Thromboplast Time 31 SEC (24-38) Sodium Level 144 mmol/L (136-145) Potassium Level 3.9 mmol/L (3.5-5.1) Chloride Level 109 mmol/L (98-107) Carbon Dioxide Level 27 mmol/L (21-32) Anion Gap 8 (6-14) Blood Urea Nitrogen 24 mg/dL (7-20) Creatinine 0.9 mg/dL (0.6-1.0) Estimated GFR (Cockcroft-Gault) 61.4 BUN/Creatinine Ratio 27 (6-20) Glucose Level 105 mg/dL (70-99) Calcium Level 8.5 mg/dL (8.5-10.1) Total Bilirubin 0.2 mg/dL (0.2-1.0) Aspartate Amino Transf (AST/SGOT) 21 U/L (15-37) Alanine Aminotransferase (ALT/SGPT) 34 U/L (14-59) Alkaline Phosphatase 49 U/L (46-116) Total Protein 6.4 g/dL (6.4-8.2) Albumin 3.2 g/dL (3.4-5.0) Albumin/Globulin Ratio 1.0 (1.0-1.7) SARS-CoV-2 Antigen (Rapid) Negative (NEGATIVE) 25-Hydroxy Vitamin D Total 33.5 ng/mL (30-100) Images Images Exam: Pelvis with left hip 2 views. Left femur 2 views INDICATION: Fall TECHNIQUE: Frontal view of the pelvis with frontal and frog-leg lateral views the left hip. Frontal and lateral views the left femur Comparisons: None FINDINGS: There is a comminuted intertrochanteric left hip fracture. Overlying soft tissues demonstrates some soft tissue swelling. No other fractures are seen. Bone mineralization is normal. Joint spaces are well-maintained. Femur: Redemonstration of the comminuted intertrochanteric hip fracture. Otherwise, no other fractures are seen. Joint spaces are well-maintained. Soft tissues are unremarkable. IMPRESSION: 1. Comminuted intertrochanteric left hip fracture. 2. No other fracture identified at the pelvis or left femur. Electronically signed by: Bipin Mena MD (11/15/2019 10:27 PM) [id number] DICTATED and SIGNED BY: BIPIN MENA MD DATE: 11/15/192226 VTE Prophylaxis Ordered VTE Prophylaxis Devices: No VTE Pharmacological Prophylaxi: Yes Assessment/Plan Assessment/Plan IMPRESSION: 1. Comminuted intertrochanteric left hip fracture. 2. Mechanical fall 3. tobacco abuse disorder plan admit consult ortho iv fluid support npo iv pain control Justicifation of Admission Dx: Justifications for Admission: Justification of Admission Dx: Yes SARKIS CARDENAS MD Nov 16, 2019 11:27
[2019-11-16] MEDS ORDERED: MAG HYDROX/ALUMINUM HYD/SIMETH 30 ML ORAL.SUSP PO PRN (11:45)
[2019-11-16] MEDS ORDERED: ACETAMINOPHEN 325 MG TABLET. PO PRN (11:45)
[2019-11-16] MEDS ORDERED: SODIUM PHOSPHATES 19/7GM 133 ML ENEMA. PR PRN (11:45)
[2019-11-16] MEDS ORDERED: ACETAMINOPHEN 650 MG SUPP.RECT. PR PRN (11:45)
[2019-11-16] MEDS ORDERED: 0.9 % SODIUM CHLORIDE 10 ML DISP.SYRIN. IV PRN (11:45)
[2019-11-16] MEDS ORDERED: ONDANSETRON PF 4 MG/2 ML VIAL. IV PRN (11:45)
[2019-11-16] MEDS ORDERED: cloNIDine HCL 0.1 MG TABLET PO PRN (11:45)
[2019-11-16] MEDS ORDERED: DOCUSATE SODIUM 100 MG CAPSULE. PO PRN (11:45)
[2019-11-16] MEDS ORDERED: CLINDAMYCIN 900MG PREMIX 50 ML IV ONE ×2 (11:45→11:46)
[2019-11-16] MEDS ORDERED: guaiFENesin ORAL 200 MG/10 ML LIQUID. PO PRN (11:45)
--- NOTE | 2019-11-16 11:59 | EKG ---
[facility] [address] [place] [address] Test Date: 2019-11-16 Test Time: 11:52:36 Pat Name: EDMAR LUZ Department: Room: [facility] Gender: F Hydrology Teacher: : 1945 Requested By: CAROLYNN RUFF Order Number: [id number] Reading MD: Measurements Intervals [place] Rate: 83 P: 28 MD: 212 QRS: -15 QRSD: 78 T: 88 QT: 340 QTc: 400 Interpretive Statements SINUS RHYTHM LEFT ATRIAL ABNORMALITY LEFTWARD AXIS LOW LIMB LEAD VOLTAGE T ABNORMALITY IN HIGH LATERAL LEADS ABNORMAL ECG RI6.02 No previous ECG available for comparison
[2019-11-16] MEDS ORDERED: IPRATRPIUM/ALBUTEROL 0.5/2.5MG 3 ML NEBU. NEB SCH (12:00)
[2019-11-16] MEDS ORDERED: MORPHINE SULFATE 5 MG, KETOROLAC 30MG VIAL 30 MG, ROPIVacaine 0.5% PF 60 ML, EPINEPHrin... INT ART ONE (12:00)
[2019-11-16] MEDS ORDERED: IV RINGERS,LACTATED 1000ML 1,000 ML IV SCH (12:02)
--- NOTE | 2019-11-16 12:08 | EKG ---
[facility] [address] [place] [address] Test Date: 2019-11-15 Test Time: 22:51:20 Pat Name: EDMAR LUZ Department: Room: [facility] Gender: F Guest Specialist: : 1945 Requested By: ALVAREZ HALL Order Number: [id number] Reading MD: Measurements Intervals [place] Rate: 83 P: -31 RI: 190 QRS: 4 QRSD: 78 T: 51 QT: 352 QTc: 414 Interpretive Statements SINUS RHYTHM LEFT ATRIAL ABNORMALITY ABNORMAL ECG RI6.02 No previous ECG available for comparison
[2019-11-16] MEDS ORDERED: HYDROmorphone 2 MG/ML VIAL IVP PRN (12:15)
[2019-11-16] MEDS ORDERED: LIDOCAINE 1% PF 2 ML VIAL. ID PRN (12:15)
[2019-11-16] MEDS ORDERED: ONDANSETRON PF 4 MG/2 ML VIAL. IVP PRN ×2 (12:15→13:45)
[2019-11-16] MEDS ORDERED: PROCHLORPERAZINE 10 MG/2 ML VIAL. IVP PRN (12:15)
[2019-11-16] MEDS ORDERED: MORPHINE SULFATE 2 MG/ML VIAL. IVP PRN ×2 (12:15→13:45)
[2019-11-16] MEDS ORDERED: fentaNYL PF VIAL 100 MCG/2 ML VIAL IVP PRN ×2 (12:15→13:45)
[2019-11-16] MEDS ORDERED: PHENYLEPHRINE in 0.9% NACL PF 1 MG/10 ML SYRINGE. IV ONE (12:47)
[2019-11-16] MEDS ORDERED: ONDANSETRON PF 4 MG/2 ML VIAL. ONE (12:47)
[2019-11-16] MEDS ORDERED: DEXAMETHASONE SOD PHOS 4 MG/ML VIAL ONE (12:47)
[2019-11-16] MEDS ORDERED: PHENYLEPHRINE 10 MG/ML VIAL. ONE (12:55)
--- NOTE | 2019-11-16 13:36 | PDOC4 ---
Operative Note Operative Note Date of Procedure: November 16, 2019 Pre-Op Diagnosis: Displaced intertrochanteric fracture of left femur, initial encounter for closed fracture, S72.142A Post-Op Diagnosis: same Procedure: left hip treatment of intertrochanteric femoral fracture with intramedullary implant, with interlocking screws, CPT 84163 Surgeon: Carolynn Mathis MD Anesthesia Type: General EBL: 100 mL Specimens Obtained: none Complications: None Implant Company: [employer] Implants: Gamma 3 Locking Nail 11 mm x 180 mm x 125; Gamma 3 system Lag Screw Titanium 10.5 mm x 85 mm; locking screw fully threaded 5 mm x 32.5 mm INDICATION FOR PROCEDURE: This patient is 74 years old, and fell, sustaining a left hip fracture. X-rays show an unstable intertrochanteric hip fracture. The patient, the patient's family, and I discussed the risks, benefits and alternatives of treatment. The alternative for treatment is bedrest, which I generally do not recommend. I recommended intramedullary nailing, and I talked to them about the potential risks of this, including bleeding, infection, blood clots, malunion, nonunion or other potential surgical or anesthetic complications. All of the questions about surgery were answered, and they desired to proceed. A written consent was obtained. PROCEDURE IN DETAIL: The patient was identified in the preoperative holding area. The correct left hip was marked by me. The patient was taken to the opera ting room, where the patient was anesthetized by the Department of Anesthesia. Preoperative antibiotics were given intravenously. The HANA table was used and the well leg was placed in a padded lithotomy leg murphy while the foot of the left leg was placed in a traction foot boot. A time-out procedure was performed. The image intensifier was used, and a preliminary reduction perf ormed. All of the images were interpreted intraoperatively by me, and the image intensifier was used throughout the case. The left hip area was prepared in sterile fashion with ChloraPrep solution and a sterile barrier Ioban hip drape was used. An incision was made over the superior aspect of the greater trochanter. A 3.2 mm guide pin was placed at the tip of the greater trochanter, and advanced into the intramedullary canal. The one step conical reamer was used over the guidewire, and a reamer sleeve was used to protect the soft tissues. No intramedullary reaming was required.The chosen nail was attached to the targeting device with the Nail Holding Screw. The nail was placed down the canal on the targeting device and the position confirmed on the image intensifier. A second incision was now used over the lower part of the greater trochanter, to place a guide pin through the guide, near the center-center position of the femoral head, and measured. The tunnel for the lag screw was reamed using the cannulated Lag Screw Step Drill. The chosen lag screw was inserted using the guide and advanced until there was a low tip-apex distance, by using sequential checks on the image intensifier. Traction on the HANA table was released. A Set Screw was now placed to lock the Lag Screw. Finally, a 5.0 mm diameter Distal Cross Lock Screw was, using the targeting guide after predrilling, and measuring. Satisfactory fracture reduction and hardware position was obtained using image intensifier views in multiple planes. Copious irrigation was used and the fascia was closed with #2 Vicryl. Bovie electrocautery was used for hemostasis. I completed the closure with 2-0 Vicryl and courtney. I used a multidrug injection for hemostasis and pain relief which includes ropivacaine, epinephrine, and morphine. A bulky sterile dressing was applied. The patient was gently transferred from the fracture table back to a hospital bed. There were no apparent complications. CAROLYNN MATHIS MD Nov 16, 2019 13:36
[2019-11-16] MEDS ORDERED: DEXTROSE 50% 25 GM / 50ML DISP.SYRIN. IV PRN (13:45)
[2019-11-16] MEDS ORDERED: MORPHINE SULFATE 4 MG/ML VIAL. IVP PRN (13:45)
[2019-11-16] MEDS ORDERED: POLYETHYLENE GLYCOL 3350 17 GM PACKET. PO PRN (13:45)
[2019-11-16] MEDS ORDERED: oxyCODONE/APAP 5/325 1 TAB TABLET PO PRN (14:00)
[2019-11-16] MEDS: fentaNYL PF VIAL 100 MCG/2 ML VIAL IVP PRN ×2 (14:01→14:20)
--- NOTE | 2019-11-16 14:46 | NUR ---
Pt. back from PACU, states pain is better, refused intervention at this time.
[2019-11-16] MEDS: IV 1/2 NORMAL SALINE 1,000 ML IV SCH (15:04)
[2019-11-16] MEDS: oxyCODONE/APAP 5/325 1 TAB TABLET PO PRN ×2 (15:09→21:17)
[2019-11-16] MEDS ORDERED: AMLO5TAB10 PO (15:12)
[2019-11-16] MEDS ORDERED: LISI-130 PO (15:12)
[2019-11-16] MEDS ORDERED: CHOL4POW11 PO (15:12)
[2019-11-16] MEDS ORDERED: ASPI-886 PO (15:15)
[2019-11-16] MEDS ORDERED: ALBUTEROL SULFATE 2.5 MG/3 ML NEBU. NEB PRN (15:15)
[2019-11-16] MEDS: CLINDAMYCIN 900MG PREMIX 50 ML IV SCH (19:06)
[2019-11-16] MEDS: ASPIRIN ENTERIC COATED 325 MG TABLET.DR. PO SCH (21:17)
[2019-11-16] MEDS ORDERED: ALBUMIN HUMAN 5% 500 ML IV ONE (23:30)
[2019-11-17] VITALS (7 sets, daily range): BP systolic 87–120; BP diastolic 40–56
[2019-11-17] MEDS: IV NORMAL SALINE 1000ML BAG 1,000 ML IV SCH ×2 (00:30→13:00)
[2019-11-17] MEDS: CLINDAMYCIN 900MG PREMIX 50 ML IV SCH ×2 (00:54→05:36)
[2019-11-17] MEDS: IV 1/2 NORMAL SALINE 1,000 ML IV SCH ×2 (02:42→17:10)
[2019-11-17 06:00] LABS: BASO % 0 % (0-3); EOS % 0 % (0-3); HEMATOCRIT 24.7 % (36.0-47.0); HEMOGLOBIN 8.3 g/dL (12.0-15.5); LYMPH # 1.4 x10^3/uL (1.0-4.8); LYMPH % 19 % (24-48); MEAN CORPUSCULAR HEMOGLOBIN 32 pg (25-35); MEAN CORPUSCULAR HGB CONC 34 g/dL (31-37); MEAN CORPUSCULAR VOLUME 93 fL (79-100); MONO # 0.7 x10^3/uL (0.0-1.1); MONO % 10 % (0-9); NEUT # 5.1 x10^3/uL (1.8-7.7); NEUT % 71 % (31-73); PLATELET COUNT 183 x10^3/uL (140-400); RED BLOOD COUNT 2.64 x10^6/uL (3.50-5.40); RED CELL DISTRIBUTION WIDTH 14.3 % (11.5-14.5); WHITE BLOOD COUNT 7.2 x10^3/uL (4.0-11.0)
[2019-11-17] MEDS ORDERED: MAGNESIUM HYDROXIDE 2,400 MG/30 ML ORAL.SUSP. PO PRN (06:00)
[2019-11-17 06:24] LABS: ALBUMIN/GLOBULIN RATIO 1.1 (1.0-1.7); CALCIUM 7.8 mg/dL (8.5-10.1); GFR 54.3; POTASSIUM 4.3 mmol/L (3.5-5.1); TOTAL BILIRUBIN 0.4 mg/dL (0.2-1.0); TOTAL PROTEIN 5.7 g/dL (6.4-8.2)
[2019-11-17] MEDS: SENNOSIDES/DOCUSATE 8.6/50MG TABLET. PO SCH (08:54)
[2019-11-17] MEDS: ASPIRIN ENTERIC COATED 325 MG TABLET.DR. PO SCH ×2 (08:54→20:47)
[2019-11-17] MEDS: CHOLECALCIFEROL (VITAMIN D3) 1,000 UNIT TABLET PO SCH (08:55)
[2019-11-17] MEDS: MULTIVITAMIN with MINERAL TABLET. PO SCH (08:55)
[2019-11-17] MEDS: ENOXAPARIN 40 MG/0.4 ML SYRINGE. SQ SCH (08:55)
--- NOTE | 2019-11-17 09:22 | PDOC ---
PROGRESS NOTES Date of Service: DATE: 11/17/19 TIME: 09:22 Chief Complaint Chief Complaint VTE Prophylaxis Ordered VTE Prophylaxis Devices: No VTE Pharmacological Prophylaxi: Yes Assessment/Plan Assessment/Plan IMPRESSION: pod # 1 1. Comminuted intertrochanteric left hip fracture. 2. Mechanical fall 3. tobacco abuse disorder plan admit consult ortho iv fluid support npo iv pain control PT/OT 11/16 post op pain slow to improve Discharge Recommendations * Home with Home Health Discharge Recommendation - DME * Rolling Walker needed * in order to complete ADLs * and ambulation safely Justicifation of Admission Dx: Justicifation of Admission Dx: Justifications for Admission: Justification of Admission Dx: Yes History of Present Illness History of Present Illness Operative Note Operative Note Operative Note Date of Procedure: November 16, 2019 Pre-Op Diagnosis: Displaced intertrochanteric fracture of left femur, initial encounter for closed fracture, S72.142A Post-Op Diagnosis: same Procedure: left hip treatment of intertrochanteric femoral fracture with intramedullary implant, with interlocking screws, CPT 52773 Surgeon: Boo Mathis MD Anesthesia Type: General EBL: 100 mL Specimens Obtained: none Complications: None Implant Company: [employer] Implants: Gamma 3 Locking Nail 11 mm x 180 mm x 125; Gamma 3 system Lag Screw Titanium 10.5 mm x 85 mm; locking screw fully threaded 5 mm x 32.5 mm Vitals Vitals Vital Signs Date Time Temp Pulse Resp B/P (MAP) Pulse Ox O2 Delivery O2 Flow Rate FiO2 11/17/19 07:20 Room Air 11/17/19 07:00 98.0 79 16 112/54 (73) 89 98.0 11/16/19 14:10 10 Physical Exam General: Alert, Cooperative Heart: Regular rate Abdomen: Soft Extremities: No clubbing, No cyanosis, Normal pulses, Other (There is tenderness of the left hip. There is pain with any attempted motion. The skin is intact without ecchymosis. The extremity is shortened and externally rotated. Light touch sensation is intact at the foot and toes. Capillary refill and pulses are intact without evidence of ischemia. Slight dorsiflexion and plantarflexion are possible without evidence of sciatic nerve injury.) Skin: No significant lesion Labs LABS * Visitor with patient Communicated Patient Care With (Name, Title) * BROOKE Will; GERALDINE Leonard Goal 1 - Bed Mobility Assistance Required * Independent Goal 1 Assessment * Appropriate - Continue Goal 2 - Transfers Assistance Required * Independent Goal 2 - Transfer Type * Sit to Stand Goal 2 Assessment * Appropriate - Continue Goal 3 - Ambulation Assistance Required * Independent Goal 3 - Ambulation Distance * 100' Goal 3 - Ambulation Device * Roller Walker Goal 3 Assessment * Appropriate - Continue Goal 4 - Stairs Assistance Required * Stand-by Assistance Goal 4 - Number of Stairs * 2-4 Goal 4 - Device on Stairs * Roller Walker Goal 4 Assessment * Appropriate - Continue Treatment Plan * Therapeutic Exercise * Bed Mobility Training * Transfer training * Gait Training * Body Mechanics Training * Dynamic Balance Training Frequency of Treatment Expected * 12 visits/week Duration of Treatment Expected * 2 weeks Discharge Recommendations * Home with Home Health Discharge Recommendation - DME * Rolling Walker needed * in order to complete ADLs * and ambulation safely Laboratory Tests Test 11/17/19 04:10 White Blood Count 7.2 x10^3/uL (4.0-11.0) Red Blood Count 2.64 x10^6/uL (3.50-5.40) Hemoglobin 8.3 g/dL (12.0-15.5) Hematocrit 24.7 % (36.0-47.0) Mean Corpuscular Volume 93 fL (79-100) Mean Corpuscular Hemoglobin 32 pg (25-35) Mean Corpuscular Hemoglobin Concent 34 g/dL (31-37) Red Cell Distribution Width 14.3 % (11.5-14.5) Platelet Count 183 x10^3/uL (140-400) Neutrophils (%) (Auto) 71 % (31-73) Lymphocytes (%) (Auto) 19 % (24-48) Monocytes (%) (Auto) 10 % (0-9) Eosinophils (%) (Auto) 0 % (0-3) Basophils (%) (Auto) 0 % (0-3) Neutrophils # (Auto) 5.1 x10^3/uL (1.8-7.7) Lymphocytes # (Auto) 1.4 x10^3/uL (1.0-4.8) Monocytes # (Auto) 0.7 x10^3/uL (0.0-1.1) Eosinophils # (Auto) 0.0 x10^3/uL (0.0-0.7) Basophils # (Auto) 0.0 x10^3/uL (0.0-0.2) Sodium Level 137 mmol/L (136-145) Potassium Level 4.3 mmol/L (3.5-5.1) Chloride Level 106 mmol/L (98-107) Carbon Dioxide Level 23 mmol/L (21-32) Anion Gap 8 (6-14) Blood Urea Nitrogen 29 mg/dL (7-20) Creatinine 1.0 mg/dL (0.6-1.0) Estimated GFR (Cockcroft-Gault) 54.3 BUN/Creatinine Ratio 29 (6-20) Glucose Level 87 mg/dL (70-99) Calcium Level 7.8 mg/dL (8.5-10.1) Total Bilirubin 0.4 mg/dL (0.2-1.0) Aspartate Amino Transf (AST/SGOT) 18 U/L (15-37) Alanine Aminotransferase (ALT/SGPT) 26 U/L (14-59) Alkaline Phosphatase 29 U/L (46-116) Total Protein 5.7 g/dL (6.4-8.2) Albumin 3.0 g/dL (3.4-5.0) Albumin/Globulin Ratio 1.1 (1.0-1.7) Assessment and Plan Assessmemt and Plan Problems Medical Problems: (1) Intertrochanteric fracture of left femur Status: Acute Comment Review of Relevant I have reviewed the following items randi (where applicable) has been applied. Labs Laboratory Tests Test 11/15/19 21:40 11/15/19 22:45 11/16/19 07:20 11/17/19 04:10 White Blood Count 5.4 x10^3/uL (4.0-11.0) 7.2 x10^3/uL (4.0-11.0) Red Blood Count 3.88 x10^6/uL (3.50-5.40) 2.64 x10^6/uL (3.50-5.40) Hemoglobin 12.1 g/dL (12.0-15.5) 8.3 g/dL (12.0-15.5) Hematocrit 36.2 % (36.0-47.0) 24.7 % (36.0-47.0) Mean Corpuscular Volume 93 fL (79-100) 93 fL (79-100) Mean Corpuscular Hemoglobin 31 pg (25-35) 32 pg (25-35) Mean Corpuscular Hemoglobin Concent 34 g/dL (31-37) 34 g/dL (31-37) Red Cell Distribution Width 14.1 % (11.5-14.5) 14.3 % (11.5-14.5) Platelet Count 315 x10^3/uL (140-400) 183 x10^3/uL (140-400) Neutrophils (%) (Auto) 48 % (31-73) 71 % (31-73) Lymphocytes (%) (Auto) 35 % (24-48) 19 % (24-48) Monocytes (%) (Auto) 10 % (0-9) 10 % (0-9) Eosinophils (%) (Auto) 5 % (0-3) 0 % (0-3) Basophils (%) (Auto) 2 % (0-3) 0 % (0-3) Neutrophils # (Auto) 2.6 x10^3/uL (1.8-7.7) 5.1 x10^3/uL (1.8-7.7) Lymphocytes # (Auto) 1.9 x10^3/uL (1.0-4.8) 1.4 x10^3/uL (1.0-4.8) Monocytes # (Auto) 0.5 x10^3/uL (0.0-1.1) 0.7 x10^3/uL (0.0-1.1) Eosinophils # (Auto) 0.3 x10^3/uL (0.0-0.7) 0.0 x10^3/uL (0.0-0.7) Basophils # (Auto) 0.1 x10^3/uL (0.0-0.2) 0.0 x10^3/uL (0.0-0.2) Prothrombin Time 12.4 SEC (11.7-14.0) 13.2 SEC (11.7-14.0) Prothromb Time International Ratio 1.0 (0.8-1.1) 1.0 (0.8-1.1) Activated Partial Thromboplast Time 31 SEC (24-38) Sodium Level 144 mmol/L (136-145) 137 mmol/L (136-145) Potassium Level 3.9 mmol/L (3.5-5.1) 4.3 mmol/L (3.5-5.1) Chloride Level 109 mmol/L (98-107) 106 mmol/L (98-107) Carbon Dioxide Level 27 mmol/L (21-32) 23 mmol/L (21-32) Anion Gap 8 (6-14) 8 (6-14) Blood Urea Nitrogen 24 mg/dL (7-20) 29 mg/dL (7-20) Creatinine 0.9 mg/dL (0.6-1.0) 1.0 mg/dL (0.6-1.0) Estimated GFR (Cockcroft-Gault) 61.4 54.3 BUN/Creatinine Ratio 27 (6-20) 29 (6-20) Glucose Level 105 mg/dL (70-99) 87 mg/dL (70-99) Calcium Level 8.5 mg/dL (8.5-10.1) 7.8 mg/dL (8.5-10.1) Total Bilirubin 0.2 mg/dL (0.2-1.0) 0.4 mg/dL (0.2-1.0) Aspartate Amino Transf (AST/SGOT) 21 U/L (15-37) 18 U/L (15-37) Alanine Aminotransferase (ALT/SGPT) 34 U/L (14-59) 26 U/L (14-59) Alkaline Phosphatase 49 U/L (46-116) 29 U/L (46-116) Total Protein 6.4 g/dL (6.4-8.2) 5.7 g/dL (6.4-8.2) Albumin 3.2 g/dL (3.4-5.0) 3.0 g/dL (3.4-5.0) Albumin/Globulin Ratio 1.0 (1.0-1.7) 1.1 (1.0-1.7) Coronavirus (PCR) Not detected (Not Detected) SARS-CoV-2 Antigen (Rapid) Negative (NEGATIVE) 25-Hydroxy Vitamin D Total 33.5 ng/mL (30-100) Laboratory Tests Test 11/17/19 04:10 White Blood Count 7.2 x10^3/uL (4.0-11.0) Red Blood Count 2.64 x10^6/uL (3.50-5.40) Hemoglobin 8.3 g/dL (12.0-15.5) Hematocrit 24.7 % (36.0-47.0) Mean Corpuscular Volume 93 fL (79-100) Mean Corpuscular Hemoglobin 32 pg (25-35) Mean Corpuscular Hemoglobin Concent 34 g/dL (31-37) Red Cell Distribution Width 14.3 % (11.5-14.5) Platelet Count 183 x10^3/uL (140-400) Neutrophils (%) (Auto) 71 % (31-73) Lymphocytes (%) (Auto) 19 % (24-48) Monocytes (%) (Auto) 10 % (0-9) Eosinophils (%) (Auto) 0 % (0-3) Basophils (%) (Auto) 0 % (0-3) Neutrophils # (Auto) 5.1 x10^3/uL (1.8-7.7) Lymphocytes # (Auto) 1.4 x10^3/uL (1.0-4.8) Monocytes # (Auto) 0.7 x10^3/uL (0.0-1.1) Eosinophils # (Auto) 0.0 x10^3/uL (0.0-0.7) Basophils # (Auto) 0.0 x10^3/uL (0.0-0.2) Sodium Level 137 mmol/L (136-145) Potassium Level 4.3 mmol/L (3.5-5.1) Chloride Level 106 mmol/L (98-107) Carbon Dioxide Level 23 mmol/L (21-32) Anion Gap 8 (6-14) Blood Urea Nitrogen 29 mg/dL (7-20) Creatinine 1.0 mg/dL (0.6-1.0) Estimated GFR (Cockcroft-Gault) 54.3 BUN/Creatinine Ratio 29 (6-20) Glucose Level 87 mg/dL (70-99) Calcium Level 7.8 mg/dL (8.5-10.1) Total Bilirubin 0.4 mg/dL (0.2-1.0) Aspartate Amino Transf (AST/SGOT) 18 U/L (15-37) Alanine Aminotransferase (ALT/SGPT) 26 U/L (14-59) Alkaline Phosphatase 29 U/L (46-116) Total Protein 5.7 g/dL (6.4-8.2) Albumin 3.0 g/dL (3.4-5.0) Albumin/Globulin Ratio 1.1 (1.0-1.7) Medications Current Medications Morphine Sulfate (Morphine Sulfate) 2 mg 1X ONCE IV Last administered on 11/15/19at 22:40; Start 11/15/19 at 22:00; Stop 11/15/19 at 22:01; Status DC Ondansetron HCl (Zofran) 4 mg 1X ONCE IVP Last administered on 11/15/19at 22:37; Start 11/15/19 at 22:00; Stop 11/15/19 at 22:01; Status DC Lisinopril (Prinivil) 40 mg 1X ONCE PO ; Start 11/15/19 at 23:00; Stop 11/15/19 at 23:01; Status DC Amlodipine Besylate (Norvasc) 5 mg 1X ONCE PO ; Start 11/15/19 at 23:00; Stop 11/15/19 at 23:01; Status DC Ondansetron HCl (Zofran) 4 mg PRN Q8HRS PRN IV NAUSEA/VOMITING 1ST CHOICE; Start 11/15/19 at 22:30; Stop 11/16/19 at 22:29; Status DC Morphine Sulfate (Morphine Sulfate) 2 mg PRN Q2HR PRN IV SEVERE PAIN 7-10 Last administered on 11/16/19at 06:55; Start 11/15/19 at 22:30; Stop 11/16/19 at 22:29; Status DC Sodium Chloride 1,000 ml @ 100 mls/hr Q10H IV Last administered on 11/16/19at 02:29; Start 11/15/19 at 23:00; Stop 11/16/19 at 22:59; Status DC Morphine Sulfate 5 mg/Ketorolac Tromethamine 30 mg/Ropivacaine 60 ml/Epinephrine HCl 0.5 mg/Sodium Chloride 100 ml @ 100 mls/hr 1X ONCE INT ART Last administered on 11/16/19at 13:10; Start 11/16/19 at 12:00; Stop 11/16/19 at 12:59; Status DC Propofol (Diprivan) 200 mg STK-MED ONCE IV ; Start 11/16/19 at 10:51; Stop 11/16/19 at 10:51; Status DC Lidocaine HCl (Lidocaine Pf 2% Vial) 5 ml STK-MED ONCE .ROUTE ; Start 11/16/19 at 10:51; Stop 11/16/19 at 10:51; Status DC Fentanyl Citrate (Fentanyl 2ml Vial) 100 mcg STK-MED ONCE .ROUTE ; Start 11/16/19 at 10:51; Stop 11/16/19 at 10:51; Status DC Sodium Chloride (Normal Saline Flush) 3 ml QSHIFT PRN IV AFTER MEDS AND BLOOD DRAWS; Start 11/16/19 at 11:45 Sodium Chloride 1,000 ml @ 80 mls/hr [id number] IV ; Start 11/16/19 at 12:00 Ondansetron HCl (Zofran) 4 mg PRN Q4HRS PRN IV NAUSEA/VOMITING; Start 11/16/19 at 11:45 Acetaminophen (Tylenol) 650 mg PRN Q4HRS PRN PO TEMP OVER 100.4F OR MILD PAIN; Start 11/16/19 at 11:45 Acetaminophen (Tylenol Supp) 650 mg PRN Q4HRS PRN CA TEMP OVER 100.4F OR MILD PAIN; Start 11/16/19 at 11:45 Al Hydroxide/Mg Hydroxide (Mylanta Plus Xs) 30 ml PRN DAILY PRN PO HEARTBURN / GAS; Start 11/16/19 at 11:45 Clonidine HCl (Catapres) 0.1 mg PRN Q6HRS PRN PO SBP>160 OR DBP>90; Start 11/16/19 at 11:45 Sodium Monofluorophosphate (Fleet Adult) 133 ml PRN DAILY PRN CA CONSTIPATION; Start 11/16/19 at 11:45 Docusate Sodium (Colace) 100 mg PRN BID PRN PO HARD STOOLS; Start 11/16/19 at 11:45 Albuterol/ Ipratropium (Duoneb) 3 ml Q4HRS NEB ; Start 11/16/19 at 12:00; Stop 11/16/19 at 14:56; Status DC Guaifenesin (Robitussin) 200 mg PRN Q4HRS PRN PO COUGH; Start 11/16/19 at 11:45 Enoxaparin Sodium (Lovenox 40mg Syringe) 40 mg Q24H SQ Last administered on 11/17/19at 08:55; Start 11/17/19 at 09:00 Clindamycin Phosphate 50 ml @ 100 mls/hr 1X ONCE IV Last administered on 11/16/19at 12:28; Start 11/16/19 at 11:45; Stop 11/16/19 at 12:14; Status DC Clindamycin Phosphate 50 ml @ As Directed STK-MED ONCE IV ; Start 11/16/19 at 11:46; Stop 11/16/19 at 11:46; Status DC Propofol (Diprivan) 200 mg STK-MED ONCE IV ; Start 11/16/19 at 12:02; Stop 11/16/19 at 12:02; Status DC Ondansetron HCl (Zofran) 4 mg PRN Q6HRS PRN IVP NAUSEA/VOMITING; Start 11/16/19 at 12:15; Stop 11/17/19 at 12:14 Fentanyl Citrate (Fentanyl 2ml Vial) 25 mcg PRN Q5MIN PRN IVP MILD PAIN 1-3; Start 11/16/19 at 12:15; Stop 11/17/19 at 12:14 Fentanyl Citrate (Fentanyl 2ml Vial) 50 mcg PRN Q5MIN PRN IVP MODERATE TO SEVERE PAIN Last administered on 11/16/19at 14:20; Start 11/16/19 at 12:15; Stop 11/17/19 at 12:14 Morphine Sulfate (Morphine Sulfate) 1 mg PRN Q10MIN PRN IVP SEVERE PAIN 7-10; Start 11/16/19 at 12:15; Stop 11/17/19 at 12:14 Ringer's Solution 1,000 ml @ 30 mls/hr Q24H IV ; Start 11/16/19 at 12:02; Stop 11/17/19 at 00:01; Status DC Lidocaine HCl (Xylocaine-Mpf 1% 2ml Vial) 2 ml 1X PRN PRN ID IV START; Start 11/16/19 at 12:15; Stop 11/17/19 at 12:14 Hydromorphone HCl (Dilaudid) 0.5 mg PRN Q10MIN PRN IVP SEV PAIN, Second choice; Start 11/16/19 at 12:15; Stop 11/17/19 at 12:14 Prochlorperazine Edisylate (Compazine) 5 mg PACU PRN PRN IVP NAUSEA, MRX1; Start 11/16/19 at 12:15; Stop 11/17/19 at 12:14 Dexamethasone Sodium Phosphate (Decadron) 4 mg STK-MED ONCE .ROUTE ; Start 11/16/19 at 12:47; Stop 11/16/19 at 12:48; Status DC Ondansetron HCl (Zofran) 4 mg STK-MED ONCE .ROUTE ; Start 11/16/19 at 12:47; Stop 11/16/19 at 12:48; Status DC Phenylephrine HCl (PHENYLEPHRINE in 0.9% NACL PF) 1 mg STK-MED ONCE IV ; Start 11/16/19 at 12:47; Stop 11/16/19 at 12:48; Status DC Phenylephrine HCl (John-Synephrine Inj) 10 mg STK-MED ONCE .ROUTE ; Start 11/16/19 at 12:55; Stop 11/16/19 at 12:55; Status DC Morphine Sulfate (Morphine Sulfate) 2 mg PRN Q1HR PRN IVP PAIN; Start 11/16/19 at 13:45 Fentanyl Citrate (Fentanyl 2ml Vial) 25 mcg PRN Q1HR PRN IVP PAIN; Start 11/16/19 at 13:45 Multivitamins (Thera M Plus) 1 tab DAILY PO Last administered on 11/17/19at 08:55; Start 11/17/19 at 09:00 Senna/Docusate Sodium (Senna Plus) 1 tab DAILY PO ; Start 11/17/19 at 09:00 Polyethylene Glycol (miraLAX PACKET) 17 gm PRN DAILY PRN PO CONSTIPATION; Start 11/16/19 at 13:45 Vitamin D (Vitamin D3) 1,000 unit DAILY PO Last administered on 11/17/19at 08:55; Start 11/17/19 at 09:00 Sodium Chloride 1,000 ml @ 75 mls/hr [id number] IV Last administered on 11/17/19at 02:42; Start 11/16/19 at 14:30 Clindamycin Phosphate 50 ml @ 100 mls/hr Q6H IV Last administered on 11/17/19at 05:36; Start 11/16/19 at 18:30; Stop 11/17/19 at 07:00; Status DC Ondansetron HCl (Zofran) 4 mg PRN Q4HRS PRN IVP NAUSEA/VOMITING; Start 11/16/19 at 13:45; Status UNV Magnesium Hydroxide (Milk Of Magnesia) 2,400 mg 1X PRN PRN PO CONSTIPATION; Start 11/17/19 at 06:00; Stop 11/18/19 at 05:59 Bisacodyl (Dulcolax Supp) 10 mg 1X PRN PRN CA CONSTIPATION; Start 11/17/19 at 16:00; Stop 11/18/19 at 15:59 Morphine Sulfate (Morphine Sulfate) 4 mg PRN Q2HR PRN IVP PAIN; Start 11/16/19 at 13:45 Dextrose (Dextrose 50%-Water Syringe) 12.5 gm PRN Q15MIN PRN IV SEE COMMENTS; Start 11/16/19 at 13:45 Aspirin (Ecotrin) 325 mg BID PO Last administered on 11/17/19at 08:54; Start 11/16/19 at 21:00 Oxycodone/ Acetaminophen (Percocet 5/325) 1 tab PRN Q4HRS PRN PO MODERATE PAIN Last administered on 11/16/19at 15:09; Start 11/16/19 at 13:45 Oxycodone/ Acetaminophen (Percocet 5/325) 2 tab PRN Q4HRS PRN PO SEVERE PAIN; Start 11/16/19 at 14:00 Fentanyl Citrate (Fentanyl 2ml Vial) 100 mcg STK-MED ONCE .ROUTE ; Start 11/16/19 at 13:59; Stop 11/16/19 at 14:00; Status DC Albuterol Sulfate (Ventolin Neb Soln) 2.5 mg PRN Q4HRS PRN NEB SHORTNESS OF ERASTO ATH; Start 11/16/19 at 15:15 Albumin Human 500 ml @ 125 mls/hr 1X ONCE IV Last administered on 11/16/19at 23:01; Start 11/16/19 at 23:30; Stop 11/17/19 at 03:29; Status DC Active Scripts Active Reported Aspirin Ec (Aspirin) 81 Mg Tablet.dr 1 Tab PO BID Amlodipine Besylate 5 Mg Tablet 5 Mg PO HS Lisinopril 40 Mg Tablet 1 Tab PO HS Questran Packet (Cholestyramine (With Sugar)) 4 Gm Powd.pack 1 Packet PO BID 30 Days Vitals/I & O Vital Sign - Last 24 Hours 11/16/19 11/16/19 11/16/19 11/16/19 10:57 11:20 13:40 13:40 Temp 100.0 99.7 98.8 100.0 99.7 98.8 Pulse 70 16 18 Resp 18 17 18 B/P (MAP) 132/62 (85) 146/70 105/52 Pulse Ox 96 93 97 O2 Delivery Room Air Room Air Room Air Room Air O2 Flow Rate 10 10 11/16/19 11/16/19 11/16/19 11/16/19 13:55 14:01 14:10 14:20 Pulse 18 18 Resp 16 18 16 16 B/P (MAP) 105/74 118/54 Pulse Ox 97 97 98 96 O2 Delivery Simple Mask Room Air Simple Mask Room Air O2 Flow Rate 10 10.0 10 11/16/19 11/16/19 11/16/19 11/16/19 14:20 14:25 14:30 14:45 Temp 99 97.8 99.0 97.8 Pulse 18 69 71 Resp 16 16 B/P (MAP) 110/6 104/56 (72) 110/59 (76) Pulse Ox 92 93 O2 Delivery Room Air Room Air Room Air 11/16/19 11/16/19 11/16/19 11/16/19 15:00 15:09 15:15 15:38 Temp 97.1 97.1 Pulse 69 Resp 18 B/P (MAP) 107/60 (76) 99/57 (71) Pulse Ox 95 93 O2 Delivery Room Air Room Air Room Air 11/16/19 11/16/19 11/16/19 11/16/19 15:45 16:15 16:15 19:53 Temp 98.0 98.4 98.0 98.4 Pulse 70 81 Resp 16 16 B/P (MAP) 102/49 (66) 106/51 (69) 88/34 (52) Pulse Ox 96 91 O2 Delivery Room Air Room Air Room Air 11/16/19 11/16/19 11/17/19 11/17/19 20:00 22:47 00:40 03:54 Temp 98.2 98.0 98.2 98.0 Pulse 72 74 70 Resp 16 18 16 B/P (MAP) 82/39 (53) 91/49 (63) 101/44 (63) Pulse Ox 94 96 92 O2 Delivery Room Air Room Air Room Air Room Air 11/17/19 11/17/19 07:00 07:20 Temp 98.0 98.0 Pulse 79 Resp 16 B/P (MAP) 112/54 (73) Pulse Ox 89 O2 Delivery Room Air Room Air Intake and Output 11/16/19 11/16/19 11/17/19 14:59 22:59 06:59 Intake Total 1150 ml 600 ml 300 ml Output Total 1400 ml 200 ml 350 ml Balance -250 ml 400 ml -50 ml Justicifation of Admission Dx: Justifications for Admission: Justification of Admission Dx: Yes SARKIS CARDENAS MD Nov 17, 2019 09:22
--- NOTE | 2019-11-17 10:19 | NUR ---
[facility] following. Discussed with RN, pt had surg 11/15. PT/OT to work with pt today. [facility] will continue to follow. Addendum: 11/17/19 at 1534 by RUTH BARRON PT/OT recommending home health. Candida Rainey RN meeting with pt. [facility] will continue to follow.
[2019-11-17] MEDS: oxyCODONE/APAP 5/325 1 TAB TABLET PO PRN (10:35)
--- NOTE | 2019-11-17 11:53 | NUR ---
Dr. Gabriel paged re:BP 87/40, HR 77.
--- NOTE | 2019-11-17 12:20 | NUR ---
Dr. Gabriel returned call, telephone orders received.
[2019-11-17] MEDS ORDERED: IV NORMAL SALINE 1000ML BAG 750 ML IV ONE (12:30)
--- NOTE | 2019-11-17 12:42 | NUR ---
Pt. sating 87% on RA, no distress noted. 2L NC placed.
--- NOTE | 2019-11-17 14:02 | NUR ---
L hip incision cleaned with chloraprep and composite drsg applied.
[2019-11-17] MEDS ORDERED: BISACODYL 10 MG SUPP.RECT. PR PRN (16:00)
--- NOTE | 2019-11-17 20:42 | PDOC ---
PROGRESS NOTES Date of Service DATE: 11/17/19 TIME: 20:41 Subjective Subjective Her hip feels much better than before surgery. She was up with a walker today. Objective Vital Signs Vital Signs Date Time Temp Pulse Resp B/P (MAP) Pulse Ox O2 Delivery O2 Flow Rate FiO2 11/17/19 19:00 98.3 89 18 120/53 (75) 97 Nasal Cannula 2.0 98.3 Physical Exam Dressing is dry. Gentle hip range of motion was minimally painful. The calf is soft and nontender. Length alignment rotation all appear normal. She is able to dorsiflex and plantarflex the foot without difficulty. Sensation intact at the foot. Labs Laboratory Tests Test 11/15/19 21:40 11/15/19 22:45 11/16/19 07:20 11/17/19 04:10 White Blood Count 5.4 x10^3/uL (4.0-11.0) 7.2 x10^3/uL (4.0-11.0) Red Blood Count 3.88 x10^6/uL (3.50-5.40) 2.64 x10^6/uL (3.50-5.40) Hemoglobin 12.1 g/dL (12.0-15.5) 8.3 g/dL (12.0-15.5) Hematocrit 36.2 % (36.0-47.0) 24.7 % (36.0-47.0) Mean Corpuscular Volume 93 fL (79-100) 93 fL (79-100) Mean Corpuscular Hemoglobin 31 pg (25-35) 32 pg (25-35) Mean Corpuscular Hemoglobin Concent 34 g/dL (31-37) 34 g/dL (31-37) Red Cell Distribution Width 14.1 % (11.5-14.5) 14.3 % (11.5-14.5) Platelet Count 315 x10^3/uL (140-400) 183 x10^3/uL (140-400) Neutrophils (%) (Auto) 48 % (31-73) 71 % (31-73) Lymphocytes (%) (Auto) 35 % (24-48) 19 % (24-48) Monocytes (%) (Auto) 10 % (0-9) 10 % (0-9) Eosinophils (%) (Auto) 5 % (0-3) 0 % (0-3) Basophils (%) (Auto) 2 % (0-3) 0 % (0-3) Neutrophils # (Auto) 2.6 x10^3/uL (1.8-7.7) 5.1 x10^3/uL (1.8-7.7) Lymphocytes # (Auto) 1.9 x10^3/uL (1.0-4.8) 1.4 x10^3/uL (1.0-4.8) Monocytes # (Auto) 0.5 x10^3/uL (0.0-1.1) 0.7 x10^3/uL (0.0-1.1) Eosinophils # (Auto) 0.3 x10^3/uL (0.0-0.7) 0.0 x10^3/uL (0.0-0.7) Basophils # (Auto) 0.1 x10^3/uL (0.0-0.2) 0.0 x10^3/uL (0.0-0.2) Prothrombin Time 12.4 SEC (11.7-14.0) 13.2 SEC (11.7-14.0) Prothromb Time International Ratio 1.0 (0.8-1.1) 1.0 (0.8-1.1) Activated Partial Thromboplast Time 31 SEC (24-38) Sodium Level 144 mmol/L (136-145) 137 mmol/L (136-145) Potassium Level 3.9 mmol/L (3.5-5.1) 4.3 mmol/L (3.5-5.1) Chloride Level 109 mmol/L (98-107) 106 mmol/L (98-107) Carbon Dioxide Level 27 mmol/L (21-32) 23 mmol/L (21-32) Anion Gap 8 (6-14) 8 (6-14) Blood Urea Nitrogen 24 mg/dL (7-20) 29 mg/dL (7-20) Creatinine 0.9 mg/dL (0.6-1.0) 1.0 mg/dL (0.6-1.0) Estimated GFR (Cockcroft-Gault) 61.4 54.3 BUN/Creatinine Ratio 27 (6-20) 29 (6-20) Glucose Level 105 mg/dL (70-99) 87 mg/dL (70-99) Calcium Level 8.5 mg/dL (8.5-10.1) 7.8 mg/dL (8.5-10.1) Total Bilirubin 0.2 mg/dL (0.2-1.0) 0.4 mg/dL (0.2-1.0) Aspartate Amino Transf (AST/SGOT) 21 U/L (15-37) 18 U/L (15-37) Alanine Aminotransferase (ALT/SGPT) 34 U/L (14-59) 26 U/L (14-59) Alkaline Phosphatase 49 U/L (46-116) 29 U/L (46-116) Total Protein 6.4 g/dL (6.4-8.2) 5.7 g/dL (6.4-8.2) Albumin 3.2 g/dL (3.4-5.0) 3.0 g/dL (3.4-5.0) Albumin/Globulin Ratio 1.0 (1.0-1.7) 1.1 (1.0-1.7) Coronavirus (PCR) Not detected (Not Detected) SARS-CoV-2 Antigen (Rapid) Negative (NEGATIVE) 25-Hydroxy Vitamin D Total 33.5 ng/mL (30-100) Laboratory Tests Test 11/17/19 04:10 White Blood Count 7.2 x10^3/uL (4.0-11.0) Red Blood Count 2.64 x10^6/uL (3.50-5.40) Hemoglobin 8.3 g/dL (12.0-15.5) Hematocrit 24.7 % (36.0-47.0) Mean Corpuscular Volume 93 fL (79-100) Mean Corpuscular Hemoglobin 32 pg (25-35) Mean Corpuscular Hemoglobin Concent 34 g/dL (31-37) Red Cell Distribution Width 14.3 % (11.5-14.5) Platelet Count 183 x10^3/uL (140-400) Neutrophils (%) (Auto) 71 % (31-73) Lymphocytes (%) (Auto) 19 % (24-48) Monocytes (%) (Auto) 10 % (0-9) Eosinophils (%) (Auto) 0 % (0-3) Basophils (%) (Auto) 0 % (0-3) Neutrophils # (Auto) 5.1 x10^3/uL (1.8-7.7) Lymphocytes # (Auto) 1.4 x10^3/uL (1.0-4.8) Monocytes # (Auto) 0.7 x10^3/uL (0.0-1.1) Eosinophils # (Auto) 0.0 x10^3/uL (0.0-0.7) Basophils # (Auto) 0.0 x10^3/uL (0.0-0.2) Sodium Level 137 mmol/L (136-145) Potassium Level 4.3 mmol/L (3.5-5.1) Chloride Level 106 mmol/L (98-107) Carbon Dioxide Level 23 mmol/L (21-32) Anion Gap 8 (6-14) Blood Urea Nitrogen 29 mg/dL (7-20) Creatinine 1.0 mg/dL (0.6-1.0) Estimated GFR (Cockcroft-Gault) 54.3 BUN/Creatinine Ratio 29 (6-20) Glucose Level 87 mg/dL (70-99) Calcium Level 7.8 mg/dL (8.5-10.1) Total Bilirubin 0.4 mg/dL (0.2-1.0) Aspartate Amino Transf (AST/SGOT) 18 U/L (15-37) Alanine Aminotransferase (ALT/SGPT) 26 U/L (14-59) Alkaline Phosphatase 29 U/L (46-116) Total Protein 5.7 g/dL (6.4-8.2) Albumin 3.0 g/dL (3.4-5.0) Albumin/Globulin Ratio 1.1 (1.0-1.7) Assessment Assessment POD# 1 after hip nail Plan Plan of Care Weightbearing as tolerated. Aspirin twice a day for 30 days for DVT prophylaxis. Discharge planning, likely to her/her daughter's home with home health care. Justicifation of Admission Dx: Justifications for Admission: Justification of Admission Dx: Yes CAROLYNN RUFF MD Nov 17, 2019 20:42
[2019-11-18] MEDS: IV NORMAL SALINE 1000ML BAG 1,000 ML IV SCH ×2 (01:30→12:38)
[2019-11-18 03:00] VITALS: BP 91/72
[2019-11-18] MEDS: oxyCODONE/APAP 5/325 1 TAB TABLET PO PRN (05:31)
[2019-11-18] MEDS: IV 1/2 NORMAL SALINE 1,000 ML IV SCH ×2 (05:32→12:38)
--- NOTE | 2019-11-18 06:12 | NUR ---
Zarco catheter removed at this time, pt tolerated well.
[2019-11-18 07:00] VITALS: BP_SYST 100; BP_SYST 104; BP_DIAS 46; BP_DIAS 55
[2019-11-18] MEDS: MULTIVITAMIN with MINERAL TABLET. PO SCH (08:30)
[2019-11-18] MEDS: CHOLECALCIFEROL (VITAMIN D3) 1,000 UNIT TABLET PO SCH (08:30)
[2019-11-18] MEDS: ENOXAPARIN 40 MG/0.4 ML SYRINGE. SQ SCH (08:30)
[2019-11-18] MEDS: SENNOSIDES/DOCUSATE 8.6/50MG TABLET. PO SCH (08:30)
[2019-11-18] MEDS: ASPIRIN ENTERIC COATED 325 MG TABLET.DR. PO SCH (08:30)
--- NOTE | 2019-11-18 10:27 | NUR ---
[facility] following. Discussed with RN, pt accepted with [id number]. Anticipate possible discharge home today. [facility] will continue to follow. Addendum: 11/18/19 at 1303 by RUTH BARRON Pt wanting [facility], rather than [facility]. Referral and discharge orders phoned and faxed to [facility], awaiting acceptance decision. Addendum: 11/18/19 at 1516 by RUTH BARRON Pt changed their mind and wants [id number]. Pt accepted with [facility].
--- NOTE | 2019-11-18 10:39 | PDOC ---
PROGRESS NOTES Date of Service: DATE: 11/18/19 TIME: 10:39 Chief Complaint Chief Complaint VTE Prophylaxis Ordered VTE Prophylaxis Devices: No VTE Pharmacological Prophylaxi: Yes DISCHARGE DX pod # 2 1. Comminuted intertrochanteric left hip fracture. 2. Mechanical fall 3. tobacco abuse disorder 4. MILD PROTEIN-CALORIC MALNUTRITION plan admit consult ortho iv fluid support npo iv pain control PT/OT 11/16 post op pain slow to improve 11/17 d/c home with home health Discharge Recommendations * Home with Home Health Discharge Recommendation - DME * Rolling Walker needed * in order to complete ADLs * and ambulation safely * * * d/c planning 34 min * * * Operative Note Date of Procedure: November 16, 2019 Pre-Op Diagnosis: Displaced intertrochanteric fracture of left femur, initial encounter for closed fracture, S72.142A Post-Op Diagnosis: same Procedure: left hip treatment of intertrochanteric femoral fracture with intramedullary implant, with interlocking screws, CPT 94809 Surgeon: Boo Mathis MD Anesthesia Type: General EBL: 100 mL Specimens Obtained: none Complications: None Implant Company: [employer] Implants: Gamma 3 Locking Nail 11 mm x 180 mm x 125; Gamma 3 system Lag Screw Titanium 10.5 mm x 85 mm; locking screw fully threaded 5 mm x 32.5 mm Justicifation of Admission Dx: Justicifation of Admission Dx: Justifications for Admission: Justification of Admission Dx: Yes History of Present Illness History of Present Illness Operative Note Operative Note Operative Note Date of Procedure: November 16, 2019 Pre-Op Diagnosis: Displaced intertrochanteric fracture of left femur, initial encounter for closed fracture, S72.142A Post-Op Diagnosis: same Procedure: left hip treatment of intertrochanteric femoral fracture with intramedullary implant, with interlocking screws, CPT 04614 Surgeon: Boo Mathis MD Anesthesia Type: General EBL: 100 mL Specimens Obtained: none Complications: None Implant Company: [employer] Implants: Gamma 3 Locking Nail 11 mm x 180 mm x 125; Gamma 3 system Lag Screw Titanium 10.5 mm x 85 mm; locking screw fully threaded 5 mm x 32.5 mm Vitals Vitals Vital Signs Date Time Temp Pulse Resp B/P (MAP) Pulse Ox O2 Delivery O2 Flow Rate FiO2 11/18/19 08:00 Nasal Cannula 1.0 11/18/19 07:00 97.8 78 16 104/46 (65) 93 97.8 Physical Exam Physical Exam Eyes: PERRLA, EOMI, conjunctiva normal, no discharge. [] Neck: Normal range of motion, no tenderness, supple, no stridor. [] Cardiovascular:Heart rate regular rhythm, peripheral pulses intact Lungs & Thorax: Bilateral breath sounds clear to auscultation [] Abdomen: Bowel sounds normal, soft, no tenderness, no masses, no pulsatile masses. [] Skin: Warm, dry, no erythema, no rash. [] Back: No tenderness, no CVA tenderness. [] Extremities: Tenderness and limited range of motion to the left neurovascular intact distally Neurologic: Alert and oriented X 3, normal motor function, normal sensory function, no focal deficits noted. [] Psychologic: Affect normal, judgement normal, mood normal. [] General: Alert, Oriented X3, Cooperative, No acute distress HEENT: EOMI, Mucous membr. moist/pink Lungs: Clear to auscultation, Normal air movement General: Alert, Cooperative, No acute distress Heart: Regular rate Abdomen: Soft Extremities: No clubbing, No cyanosis, Normal pulses, Other (There is tenderness of the left hip. There is pain with any attempted motion. The skin is intact without ecchymosis. The extremity is shortened and externally rotated. Light touch sensation is intact at the foot and toes. Capillary refill and pulses are intact without evidence of ischemia. Slight dorsiflexion and plantarflexion are possible without evidence of sciatic nerve injury.) Skin: No significant lesion Assessment and Plan Assessmemt and Plan Problems Medical Problems: (1) Intertrochanteric fracture of left femur Status: Acute Comment Review of Relevant I have reviewed the following items randi (where applicable) has been applied. Labs Laboratory Tests Test 11/17/19 04:10 White Blood Count 7.2 x10^3/uL (4.0-11.0) Red Blood Count 2.64 x10^6/uL (3.50-5.40) Hemoglobin 8.3 g/dL (12.0-15.5) Hematocrit 24.7 % (36.0-47.0) Mean Corpuscular Volume 93 fL (79-100) Mean Corpuscular Hemoglobin 32 pg (25-35) Mean Corpuscular Hemoglobin Concent 34 g/dL (31-37) Red Cell Distribution Width 14.3 % (11.5-14.5) Platelet Count 183 x10^3/uL (140-400) Neutrophils (%) (Auto) 71 % (31-73) Lymphocytes (%) (Auto) 19 % (24-48) Monocytes (%) (Auto) 10 % (0-9) Eosinophils (%) (Auto) 0 % (0-3) Basophils (%) (Auto) 0 % (0-3) Neutrophils # (Auto) 5.1 x10^3/uL (1.8-7.7) Lymphocytes # (Auto) 1.4 x10^3/uL (1.0-4.8) Monocytes # (Auto) 0.7 x10^3/uL (0.0-1.1) Eosinophils # (Auto) 0.0 x10^3/uL (0.0-0.7) Basophils # (Auto) 0.0 x10^3/uL (0.0-0.2) Sodium Level 137 mmol/L (136-145) Potassium Level 4.3 mmol/L (3.5-5.1) Chloride Level 106 mmol/L (98-107) Carbon Dioxide Level 23 mmol/L (21-32) Anion Gap 8 (6-14) Blood Urea Nitrogen 29 mg/dL (7-20) Creatinine 1.0 mg/dL (0.6-1.0) Estimated GFR (Cockcroft-Gault) 54.3 BUN/Creatinine Ratio 29 (6-20) Glucose Level 87 mg/dL (70-99) Calcium Level 7.8 mg/dL (8.5-10.1) Total Bilirubin 0.4 mg/dL (0.2-1.0) Aspartate Amino Transf (AST/SGOT) 18 U/L (15-37) Alanine Aminotransferase (ALT/SGPT) 26 U/L (14-59) Alkaline Phosphatase 29 U/L (46-116) Total Protein 5.7 g/dL (6.4-8.2) Albumin 3.0 g/dL (3.4-5.0) Albumin/Globulin Ratio 1.1 (1.0-1.7) Medications Current Medications Morphine Sulfate (Morphine Sulfate) 2 mg 1X ONCE IV Last administered on 11/15/19at 22:40; Start 11/15/19 at 22:00; Stop 11/15/19 at 22:01; Status DC Ondansetron HCl (Zofran) 4 mg 1X ONCE IVP Last administered on 11/15/19at 22:37; Start 11/15/19 at 22:00; Stop 11/15/19 at 22:01; Status DC Lisinopril (Prinivil) 40 mg 1X ONCE PO ; Start 11/15/19 at 23:00; Stop 11/15/19 at 23:01; Status DC Amlodipine Besylate (Norvasc) 5 mg 1X ONCE PO ; Start 11/15/19 at 23:00; Stop 11/15/19 at 23:01; Status DC Ondansetron HCl (Zofran) 4 mg PRN Q8HRS PRN IV NAUSEA/VOMITING 1ST CHOICE; Start 11/15/19 at 22:30; Stop 11/16/19 at 22:29; Status DC Morphine Sulfate (Morphine Sulfate) 2 mg PRN Q2HR PRN IV SEVERE PAIN 7-10 Last administered on 11/16/19at 06:55; Start 11/15/19 at 22:30; Stop 11/16/19 at 22:29; Status DC Sodium Chloride 1,000 ml @ 100 mls/hr Q10H IV Last administered on 11/16/19at 02:29; Start 11/15/19 at 23:00; Stop 11/16/19 at 22:59; Status DC Morphine Sulfate 5 mg/Ketorolac Tromethamine 30 mg/Ropivacaine 60 ml/Epinephrine HCl 0.5 mg/Sodium Chloride 100 ml @ 100 mls/hr 1X ONCE INT ART Last administered on 11/16/19at 13:10; Start 11/16/19 at 12:00; Stop 11/16/19 at 12:59; Status DC Propofol (Diprivan) 200 mg STK-MED ONCE IV ; Start 11/16/19 at 10:51; Stop 11/16/19 at 10:51; Status DC Lidocaine HCl (Lidocaine Pf 2% Vial) 5 ml STK-MED ONCE .ROUTE ; Start 11/16/19 at 10:51; Stop 11/16/19 at 10:51; Status DC Fentanyl Citrate (Fentanyl 2ml Vial) 100 mcg STK-MED ONCE .ROUTE ; Start 11/16/19 at 10:51; Stop 11/16/19 at 10:51; Status DC Sodium Chloride (Normal Saline Flush) 3 ml QSHIFT PRN IV AFTER MEDS AND BLOOD DRAWS; Start 11/16/19 at 11:45 Sodium Chloride 1,000 ml @ 80 mls/hr [id number] IV ; Start 11/16/19 at 12:00 Ondansetron HCl (Zofran) 4 mg PRN Q4HRS PRN IV NAUSEA/VOMITING; Start 11/16/19 at 11:45 Acetaminophen (Tylenol) 650 mg PRN Q4HRS PRN PO TEMP OVER 100.4F OR MILD PAIN; Start 11/16/19 at 11:45 Acetaminophen (Tylenol Supp) 650 mg PRN Q4HRS PRN ND TEMP OVER 100.4F OR MILD PAIN; Start 11/16/19 at 11:45 Al Hydroxide/Mg Hydroxide (Mylanta Plus Xs) 30 ml PRN DAILY PRN PO HEARTBURN / GAS; Start 11/16/19 at 11:45 Clonidine HCl (Catapres) 0.1 mg PRN Q6HRS PRN PO SBP>160 OR DBP>90; Start 11/16/19 at 11:45 Sodium Monofluorophosphate (Fleet Adult) 133 ml PRN DAILY PRN ND CONSTIPATION; Start 11/16/19 at 11:45 Docusate Sodium (Colace) 100 mg PRN BID PRN PO HARD STOOLS; Start 11/16/19 at 11:45 Albuterol/ Ipratropium (Duoneb) 3 ml Q4HRS NEB ; Start 11/16/19 at 12:00; Stop 11/16/19 at 14:56; Status DC Guaifenesin (Robitussin) 200 mg PRN Q4HRS PRN PO COUGH; Start 11/16/19 at 11:45 Enoxaparin Sodium (Lovenox 40mg Syringe) 40 mg Q24H SQ Last administered on 11/18/19at 08:30; Start 11/17/19 at 09:00 Clindamycin Phosphate 50 ml @ 100 mls/hr 1X ONCE IV Last administered on 11/16/19at 12:28; Start 11/16/19 at 11:45; Stop 11/16/19 at 12:14; Status DC Clindamycin Phosphate 50 ml @ As Directed STK-MED ONCE IV ; Start 11/16/19 at 11:46; Stop 11/16/19 at 11:46; Status DC Propofol (Diprivan) 200 mg STK-MED ONCE IV ; Start 11/16/19 at 12:02; Stop 11/16/19 at 12:02; Status DC Ondansetron HCl (Zofran) 4 mg PRN Q6HRS PRN IVP NAUSEA/VOMITING; Start 11/16/19 at 12:15; Stop 11/17/19 at 12:14; Status DC Fentanyl Citrate (Fentanyl 2ml Vial) 25 mcg PRN Q5MIN PRN IVP MILD PAIN 1-3; Start 11/16/19 at 12:15; Stop 11/17/19 at 12:14; Status DC Fentanyl Citrate (Fentanyl 2ml Vial) 50 mcg PRN Q5MIN PRN IVP MODERATE TO SEVERE PAIN Last administered on 11/16/19at 14:20; Start 11/16/19 at 12:15; Stop 11/17/19 at 12:14; Status DC Morphine Sulfate (Morphine Sulfate) 1 mg PRN Q10MIN PRN IVP SEVERE PAIN 7-10; Start 11/16/19 at 12:15; Stop 11/17/19 at 12:14; Status DC Ringer's Solution 1,000 ml @ 30 mls/hr Q24H IV ; Start 11/16/19 at 12:02; Stop 11/17/19 at 00:01; Status DC Lidocaine HCl (Xylocaine-Mpf 1% 2ml Vial) 2 ml 1X PRN PRN ID IV START; Start 11/16/19 at 12:15; Stop 11/17/19 at 12:14; Status DC Hydromorphone HCl (Dilaudid) 0.5 mg PRN Q10MIN PRN IVP SEV PAIN, Second choice; Start 11/16/19 at 12:15; Stop 11/17/19 at 12:14; Status DC Prochlorperazine Edisylate (Compazine) 5 mg PACU PRN PRN IVP NAUSEA, MRX1; Start 11/16/19 at 12:15; Stop 11/17/19 at 12:14; Status DC Dexamethasone Sodium Phosphate (Decadron) 4 mg STK-MED ONCE .ROUTE ; Start 11/16/19 at 12:47; Stop 11/16/19 at 12:48; Status DC Ondansetron HCl (Zofran) 4 mg STK-MED ONCE .ROUTE ; Start 11/16/19 at 12:47; Stop 11/16/19 at 12:48; Status DC Phenylephrine HCl (PHENYLEPHRINE in 0.9% NACL PF) 1 mg STK-MED ONCE IV ; Start 11/16/19 at 12:47; Stop 11/16/19 at 12:48; Status DC Phenylephrine HCl (John-Synephrine Inj) 10 mg STK-MED ONCE .ROUTE ; Start 11/16/19 at 12:55; Stop 11/16/19 at 12:55; Status DC Morphine Sulfate (Morphine Sulfate) 2 mg PRN Q1HR PRN IVP PAIN; Start 11/16/19 at 13:45 Fentanyl Citrate (Fentanyl 2ml Vial) 25 mcg PRN Q1HR PRN IVP PAIN; Start 11/16/19 at 13:45 Multivitamins (Thera M Plus) 1 tab DAILY PO Last administered on 11/18/19at 08:30; Start 11/17/19 at 09:00 Senna/Docusate Sodium (Senna Plus) 1 tab DAILY PO ; Start 11/17/19 at 09:00 Polyethylene Glycol (miraLAX PACKET) 17 gm PRN DAILY PRN PO CONSTIPATION; Start 11/16/19 at 13:45 Vitamin D (Vitamin D3) 1,000 unit DAILY PO Last administered on 11/18/19at 08:30; Start 11/17/19 at 09:00 Sodium Chloride 1,000 ml @ 75 mls/hr [id number] IV Last administered on 11/17/19at 02:42; Start 11/16/19 at 14:30 Clindamycin Phosphate 50 ml @ 100 mls/hr Q6H IV Last administered on 11/17/19at 05:36; Start 11/16/19 at 18:30; Stop 11/17/19 at 07:00; Status DC Ondansetron HCl (Zofran) 4 mg PRN Q4HRS PRN IVP NAUSEA/VOMITING; Start 11/16/19 at 13:45; Status UNV Magnesium Hydroxide (Milk Of Magnesia) 2,400 mg 1X PRN PRN PO CONSTIPATION; Start 11/17/19 at 06:00; Stop 11/18/19 at 05:59; Status DC Bisacodyl (Dulcolax Supp) 10 mg 1X PRN PRN ND CONSTIPATION; Start 11/17/19 at 16:00; Stop 11/18/19 at 15:59 Morphine Sulfate (Morphine Sulfate) 4 mg PRN Q2HR PRN IVP PAIN; Start 11/16/19 at 13:45 Dextrose (Dextrose 50%-Water Syringe) 12.5 gm PRN Q15MIN PRN IV SEE COMMENTS; Start 11/16/19 at 13:45 Aspirin (Ecotrin) 325 mg BID PO Last administered on 11/18/19at 08:30; Start 11/16/19 at 21:00 Oxycodone/ Acetaminophen (Percocet 5/325) 1 tab PRN Q4HRS PRN PO MODERATE PAIN Last administered on 11/18/19at 05:31; Start 11/16/19 at 13:45 Oxycodone/ Acetaminophen (Percocet 5/325) 2 tab PRN Q4HRS PRN PO SEVERE PAIN; Start 11/16/19 at 14:00 Fentanyl Citrate (Fentanyl 2ml Vial) 100 mcg STK-MED ONCE .ROUTE ; Start 11/16/19 at 13:59; Stop 11/16/19 at 14:00; Status DC Albuterol Sulfate (Ventolin Neb Soln) 2.5 mg PRN Q4HRS PRN NEB SHORTNESS OF BREATH; Start 11/16/19 at 15:15 Albumin Human 500 ml @ 125 mls/hr 1X ONCE IV Last administered on 11/16/19at 23:01; Start 11/16/19 at 23:30; Stop 11/17/19 at 03:29; Status DC Sodium Chloride 750 ml @ 375 mls/hr 1X ONCE IV Last administered on 11/17/19at 12:40; Start 11/17/19 at 12:30; Stop 11/17/19 at 14:29; Status DC Active Scripts Active Reported Aspirin Ec (Aspirin) 81 Mg Tablet.dr 1 Tab PO BID Amlodipine Besylate 5 Mg Tablet 5 Mg PO HS Lisinopril 40 Mg Tablet 1 Tab PO HS Questran Packet (Cholestyramine (With Sugar)) 4 Gm Powd.pack 1 Packet PO BID 30 Days Vitals/I & O Vital Sign - Last 24 Hours 11/17/19 11/17/19 11/17/19 11/17/19 11:00 11:44 15:00 19:00 Temp 97.4 97.8 98.3 97.4 97.8 98.3 Pulse 77 78 89 Resp 16 18 18 B/P (MAP) 87/40 (56) 107/51 (69) 120/53 (75) Pulse Ox 91 97 97 O2 Delivery Room Air Room Air Nasal Cannula Nasal Cannula O2 Flow Rate 2.0 11/17/19 11/17/19 11/18/19 11/18/19 20:00 23:00 03:00 05:31 Temp 98.5 98.3 98.5 98.3 Pulse 80 78 Resp 18 18 16 B/P (MAP) 109/56 (73) 91/72 (78) Pulse Ox 95 96 96 O2 Delivery Nasal Cannula Nasal Cannula Nasal Cannula Nasal Cannula O2 Flow Rate 2.0 2.0 2.0 2.0 11/18/19 11/18/19 11/18/19 06:31 07:00 08:00 Temp 97.8 97.8 Pulse 78 Resp 16 16 B/P (MAP) 104/46 (65) Pulse Ox 93 O2 Delivery Nasal Cannula Room Air Nasal Cannula O2 Flow Rate 1.0 1.0 Intake and Output 11/17/19 11/17/19 11/18/19 15:00 23:00 07:00 Intake Total 120 ml 400 ml Output Total 800 ml 1350 ml Balance 120 ml -800 ml -950 ml Justicifation of Admission Dx: Justifications for Admission: Justification of Admission Dx: Yes SARKIS CARDENAS MD Nov 18, 2019 10:39
[2019-11-18 11:00] VITALS: BP 126/62
--- NOTE | 2019-11-18 12:38 | PDOC3 ---
Discharge Summary Date of Admission: Nov 16, 2019 Date of Discharge: Nov 18, 2019 Follow-Up: 1-2 days Admitting Diagnosis comment: DISCHARGE DX pod # 2 1. Comminuted intertrochanteric left hip fracture. 2. Mechanical fall 3. tobacco abuse disorder 4. MILD PROTEIN-CALORIC MALNUTRITION plan admit consult ortho iv fluid support npo iv pain control PT/OT 11/16 post op pain slow to improve 11/17 d/c home with home health Discharge Recommendations * Home with Home Health Discharge Recommendation - DME * Rolling Walker needed * in order to complete ADLs * and ambulation safely * * * d/c planning 34 min * * * Operative Note Date of Procedure: November 16, 2019 Pre-Op Diagnosis: Displaced intertrochanteric fracture of left femur, initial encounter for closed fracture, S72.142A Post-Op Diagnosis: same Procedure: left hip treatment of intertrochanteric femoral fracture with intramedullary implant, with interlocking screws, CPT 30852 Surgeon: Boo Mathis MD Anesthesia Type: General EBL: 100 mL Specimens Obtained: none Complications: None Implant Company: [employer] Implants: Gamma 3 Locking Nail 11 mm x 180 mm x 125; Gamma 3 system Lag Screw Titanium 10.5 mm x 85 mm; locking screw fully threaded 5 mm x 32.5 mm Justicifation of Admission Dx: Justicifation of Admission Dx: Justifications for Admission: Justification of Admission Dx: Yes History of Present Illness History of Present Illness Operative Note Operative Note Operative Note Date of Procedure: November 16, 2019 Pre-Op Diagnosis: Displaced intertrochanteric fracture of left femur, initial encounter for closed fracture, S72.142A Post-Op Diagnosis: same Procedure: left hip treatment of intertrochanteric femoral fracture with intramedullary implant, with interlocking screws, CPT 65204 Surgeon: Boo Mathis MD Anesthesia Type: General EBL: 100 mL Specimens Obtained: none Complications: None Implant Company: [employer] Implants: Gamma 3 Locking Nail 11 mm x 180 mm x 125; Gamma 3 system Lag Screw Titanium 10.5 mm x 85 mm; locking screw fully threaded 5 mm x 32.5 mm Vitals Vitals Vital Signs Date Time Temp Pulse Resp B/P (MAP) Pulse Ox O2 Delivery O2 Flow Rate FiO2 8/6/20 08:00 Nasal Cannula 1.0 11/18/19 07:00 97.8 78 16 104/46 (65 93 97.8 Physical Exam Physical Exam Eyes: PERRLA, EOMI, conjunctiva normal, no discharge. [] Neck: Normal range of motion, no tenderness, supple, no stridor. [] Cardiovascular:Heart rate regular rhythm, peripheral pulses intact Lungs & Thorax: Bilateral breath sounds clear to auscultation [] Abdomen: Bowel sounds normal, soft, no tenderness, no masses, no pulsatile masses. [] Skin: Warm, dry, no erythema, no rash. [] Back: No tenderness, no CVA tenderness. [] Extremities: Tenderness and limited range of motion to the left neurovascular intact distally Neurologic: Alert and oriented X 3, normal motor function, normal sensory function, no focal deficits noted. [] Psychologic: Affect normal, judgement normal, mood normal. [] General: Alert, Oriented X3, Cooperative, No acute distress HEENT: EOMI, Mucous membr. moist/pink Lungs: Clear to auscultation, Normal air movement General: Alert, Cooperative, No acute distress Heart: Regular rate Abdomen: Soft Extremities: No clubbing, No cyanosis, Normal pulses, Other (There is tenderness of the left hip. There is pain with any attempted motion. The skin is intact without ecchymosis. The extremity is shortened and externally rotated. Light touch sensation is intact at the foot and toes. Capillary refill and pulses are intact without evidence of ischemia. Slight dorsiflexion and plantarflexion are possible without evidence of sciatic nerve injury.) Skin: No significant lesion FINAL DIAGNOSIS Problems Medical Problems: (1) Intertrochanteric fracture of left femur Status: Acute Brief Hospital Course Ms. Stanford is a 74 old [sex] who presented with [ FALL WITH HIP FRACTURE] CONDITION AT DISCHARGE: Improved Discharge Medications Current Medications Morphine Sulfate (Morphine Sulfate) 2 mg 1X ONCE IV Last administered on 11/15/19at 22:40; Start 11/15/19 at 22:00; Stop 11/15/19 at 22:01; Status DC Ondansetron HCl (Zofran) 4 mg 1X ONCE IVP Last administered on 11/15/19at 22:37; Start 11/15/19 at 22:00; Stop 11/15/19 at 22:01; Status DC Lisinopril (Prinivil) 40 mg 1X ONCE PO ; Start 11/15/19 at 23:00; Stop 11/15/19 at 23:01; Status DC Amlodipine Besylate (Norvasc) 5 mg 1X ONCE PO ; Start 11/15/19 at 23:00; Stop 11/15/19 at 23:01; Status DC Ondansetron HCl (Zofran) 4 mg PRN Q8HRS PRN IV NAUSEA/VOMITING 1ST CHOICE; Start 11/15/19 at 22:30; Stop 11/16/19 at 22:29; Status DC Morphine Sulfate (Morphine Sulfate) 2 mg PRN Q2HR PRN IV SEVERE PAIN 7-10 Last administered on 11/16/19at 06:55; Start 11/15/19 at 22:30; Stop 11/16/19 at 22:29; Status DC Sodium Chloride 1,000 ml @ 100 mls/hr Q10H IV Last administered on 11/16/19at 02:29; Start 11/15/19 at 23:00; Stop 11/16/19 at 22:59; Status DC Morphine Sulfate 5 mg/Ketorolac Tromethamine 30 mg/Ropivacaine 60 ml/Epinephrine HCl 0.5 mg/Sodium Chloride 100 ml @ 100 mls/hr 1X ONCE INT ART Last administered on 11/16/19at 13:10; Start 11/16/19 at 12:00; Stop 11/16/19 at 12:59; Status DC Propofol (Diprivan) 200 mg STK-MED ONCE IV ; Start 11/16/19 at 10:51; Stop 11/16/19 at 10:51; Status DC Lidocaine HCl (Lidocaine Pf 2% Vial) 5 ml STK-MED ONCE .ROUTE ; Start 11/16/19 at 10:51; Stop 11/16/19 at 10:51; Status DC Fentanyl Citrate (Fentanyl 2ml Vial) 100 mcg STK-MED ONCE .ROUTE ; Start 11/16/19 at 10:51; Stop 11/16/19 at 10:51; Status DC Sodium Chloride (Normal Saline Flush) 3 ml QSHIFT PRN IV AFTER MEDS AND BLOOD DRAWS; Start 11/16/19 at 11:45 Sodium Chloride 1,000 ml @ 80 mls/hr [id number] IV ; Start 11/16/19 at 12:00 Ondansetron HCl (Zofran) 4 mg PRN Q4HRS PRN IV NAUSEA/VOMITING; Start 11/16/19 at 11:45 Acetaminophen (Tylenol) 650 mg PRN Q4HRS PRN PO TEMP OVER 100.4F OR MILD PAIN; Start 11/16/19 at 11:45 Acetaminophen (Tylenol Supp) 650 mg PRN Q4HRS PRN SD TEMP OVER 100.4F OR MILD PAIN; Start 11/16/19 at 11:45 Al Hydroxide/Mg Hydroxide (Mylanta Plus Xs) 30 ml PRN DAILY PRN PO HEARTBURN / GAS; Start 11/16/19 at 11:45 Clonidine HCl (Catapres) 0.1 mg PRN Q6HRS PRN PO SBP>160 OR DBP>90; Start 11/16/19 at 11:45 Sodium Monofluorophosphate (Fleet Adult) 133 ml PRN DAILY PRN SD CONSTIPATION; Start 11/16/19 at 11:45 Docusate Sodium (Colace) 100 mg PRN BID PRN PO HARD STOOLS; Start 11/16/19 at 11:45 Albuterol/ Ipratropium (Duoneb) 3 ml Q4HRS NEB ; Start 11/16/19 at 12:00; Stop 11/16/19 at 14:56; Status DC Guaifenesin (Robitussin) 200 mg PRN Q4HRS PRN PO COUGH; Start 11/16/19 at 11:45 Enoxaparin Sodium (Lovenox 40mg Syringe) 40 mg Q24H SQ Last administered on 11/18/19at 08:30; Start 11/17/19 at 09:00 Clindamycin Phosphate 50 ml @ 100 mls/hr 1X ONCE IV Last administered on 11/16/19at 12:28; Start 11/16/19 at 11:45; Stop 11/16/19 at 12:14; Status DC Clindamycin Phosphate 50 ml @ As Directed STK-MED ONCE IV ; Start 11/16/19 at 11:46; Stop 11/16/19 at 11:46; Status DC Propofol (Diprivan) 200 mg STK-MED ONCE IV ; Start 11/16/19 at 12:02; Stop 11/16/19 at 12:02; Status DC Ondansetron HCl (Zofran) 4 mg PRN Q6HRS PRN IVP NAUSEA/VOMITING; Start 11/16/19 at 12:15; Stop 11/17/19 at 12:14; Status DC Fentanyl Citrate (Fentanyl 2ml Vial) 25 mcg PRN Q5MIN PRN IVP MILD PAIN 1-3; Start 11/16/19 at 12:15; Stop 11/17/19 at 12:14; Status DC Fentanyl Citrate (Fentanyl 2ml Vial) 50 mcg PRN Q5MIN PRN IVP MODERATE TO SEVERE PAIN Last administered on 11/16/19at 14:20; Start 11/16/19 at 12:15; Stop 11/17/19 at 12:14; Status DC Morphine Sulfate (Morphine Sulfate) 1 mg PRN Q10MIN PRN IVP SEVERE PAIN 7-10; Start 11/16/19 at 12:15; Stop 11/17/19 at 12:14; Status DC Ringer's Solution 1,000 ml @ 30 mls/hr Q24H IV ; Start 11/16/19 at 12:02; Stop 11/17/19 at 00:01; Status DC Lidocaine HCl (Xylocaine-Mpf 1% 2ml Vial) 2 ml 1X PRN PRN ID IV START; Start 11/16/19 at 12:15; Stop 11/17/19 at 12:14; Status DC Hydromorphone HCl (Dilaudid) 0.5 mg PRN Q10MIN PRN IVP SEV PAIN, Second choice; Start 11/16/19 at 12:15; Stop 11/17/19 at 12:14; Status DC Prochlorperazine Edisylate (Compazine) 5 mg PACU PRN PRN IVP NAUSEA, MRX1; Start 11/16/19 at 12:15; Stop 11/17/19 at 12:14; Status DC Dexamethasone Sodium Phosphate (Decadron) 4 mg STK-MED ONCE .ROUTE ; Start 11/16/19 at 12:47; Stop 11/16/19 at 12:48; Status DC Ondansetron HCl (Zofran) 4 mg STK-MED ONCE .ROUTE ; Start 11/16/19 at 12:47; Stop 11/16/19 at 12:48; Status DC Phenylephrine HCl (PHENYLEPHRINE in 0.9% NACL PF) 1 mg STK-MED ONCE IV ; Start 11/16/19 at 12:47; Stop 11/16/19 at 12:48; Status DC Phenylephrine HCl (John-Synephrine Inj) 10 mg STK-MED ONCE .ROUTE ; Start 11/16/19 at 12:55; Stop 11/16/19 at 12:55; Status DC Morphine Sulfate (Morphine Sulfate) 2 mg PRN Q1HR PRN IVP PAIN; Start 11/16/19 at 13:45 Fentanyl Citrate (Fentanyl 2ml Vial) 25 mcg PRN Q1HR PRN IVP PAIN; Start 11/16/19 at 13:45 Multivitamins (Thera M Plus) 1 tab DAILY PO Last administered on 11/18/19at 08:30; Start 11/17/19 at 09:00 Senna/Docusate Sodium (Senna Plus) 1 tab DAILY PO ; Start 11/17/19 at 09:00 Polyethylene Glycol (miraLAX PACKET) 17 gm PRN DAILY PRN PO CONSTIPATION; Start 11/16/19 at 13:45 Vitamin D (Vitamin D3) 1,000 unit DAILY PO Last administered on 11/18/19at 08:30; Start 11/17/19 at 09:00 Sodium Chloride 1,000 ml @ 75 mls/hr [id number] IV Last administered on 11/17/19at 02:42; Start 11/16/19 at 14:30 Clindamycin Phosphate 50 ml @ 100 mls/hr Q6H IV Last administered on 11/17/19at 05:36; Start 11/16/19 at 18:30; Stop 11/17/19 at 07:00; Status DC Ondansetron HCl (Zofran) 4 mg PRN Q4HRS PRN IVP NAUSEA/VOMITING; Start 11/16/19 at 13:45; Status UNV Magnesium Hydroxide (Milk Of Magnesia) 2,400 mg 1X PRN PRN PO CONSTIPATION; Start 11/17/19 at 06:00; Stop 11/18/19 at 05:59; Status DC Bisacodyl (Dulcolax Supp) 10 mg 1X PRN PRN SD CONSTIPATION; Start 11/17/19 at 16:00; Stop 11/18/19 at 15:59 Morphine Sulfate (Morphine Sulfate) 4 mg PRN Q2HR PRN IVP PAIN; Start 11/16/19 at 13:45 Dextrose (Dextrose 50%-Water Syringe) 12.5 gm PRN Q15MIN PRN IV SEE COMMENTS; Start 11/16/19 at 13:45 Aspirin (Ecotrin) 325 mg BID PO Last administered on 11/18/19at 08:30; Start 11/16/19 at 21:00 Oxycodone/ Acetaminophen (Percocet 5/325) 1 tab PRN Q4HRS PRN PO MODERATE PAIN Last administered on 11/18/19at 05:31; Start 11/16/19 at 13:45 Oxycodone/ Acetaminophen (Percocet 5/325) 2 tab PRN Q4HRS PRN PO SEVERE PAIN; Start 11/16/19 at 14:00 Fentanyl Citrate (Fentanyl 2ml Vial) 100 mcg STK-MED ONCE .ROUTE ; Start 11/16/19 at 13:59; Stop 11/16/19 at 14:00; Status DC Albuterol Sulfate (Ventolin Neb Soln) 2.5 mg PRN Q4HRS PRN NEB SHORTNESS OF BREATH; Start 11/16/19 at 15:15 Albumin Human 500 ml @ 125 mls/hr 1X ONCE IV Last administered on 11/16/19at 23:01; Start 11/16/19 at 23:30; Stop 11/17/19 at 03:29; Status DC Sodium Chloride 750 ml @ 375 mls/hr 1X ONCE IV Last administered on 11/17/19at 12:40; Start 11/17/19 at 12:30; Stop 11/17/19 at 14:29; Status DC Active Scripts Active Reported Aspirin Ec (Aspirin) 81 Mg Tablet.dr 1 Tab PO BID Amlodipine Besylate 5 Mg Tablet 5 Mg PO HS Lisinopril 40 Mg Tablet 1 Tab PO HS Questran Packet (Cholestyramine (With Sugar)) 4 Gm Powd.pack 1 Packet PO BID 30 Days Vital Signs Vital Signs Date Time Temp Pulse Resp B/P (MAP) Pulse Ox O2 Delivery O2 Flow Rate FiO2 11/18/19 08:00 Nasal Cannula 1.0 11/18/19 07:00 97.8 78 16 104/46 (65 93 97.8 Labs Laboratory Tests Test 11/17/19 04:10 White Blood Count 7.2 x10^3/uL (4.0-11.0) Red Blood Count 2.64 x10^6/uL (3.50-5.40) Hemoglobin 8.3 g/dL (12.0-15.5) Hematocrit 24.7 % (36.0-47.0) Mean Corpuscular Volume 93 fL (79-100) Mean Corpuscular Hemoglobin 32 pg (25-35) Mean Corpuscular Hemoglobin Concent 34 g/dL (31-37) Red Cell Distribution Width 14.3 % (11.5-14.5) Platelet Count 183 x10^3/uL (140-400) Neutrophils (%) (Auto) 71 % (31-73) Lymphocytes (%) (Auto) 19 % (24-48) Monocytes (%) (Auto) 10 % (0-9) Eosinophils (%) (Auto) 0 % (0-3) Basophils (%) (Auto) 0 % (0-3) Neutrophils # (Auto) 5.1 x10^3/uL (1.8-7.7) Lymphocytes # (Auto) 1.4 x10^3/uL (1.0-4.8) Monocytes # (Auto) 0.7 x10^3/uL (0.0-1.1) Eosinophils # (Auto) 0.0 x10^3/uL (0.0-0.7) Basophils # (Auto) 0.0 x10^3/uL (0.0-0.2) Sodium Level 137 mmol/L (136-145) Potassium Level 4.3 mmol/L (3.5-5.1) Chloride Level 106 mmol/L (98-107) Carbon Dioxide Level 23 mmol/L (21-32) Anion Gap 8 (6-14) Blood Urea Nitrogen 29 mg/dL (7-20) Creatinine 1.0 mg/dL (0.6-1.0) Estimated GFR (Cockcroft-Gault) 54.3 BUN/Creatinine Ratio 29 (6-20) Glucose Level 87 mg/dL (70-99) Calcium Level 7.8 mg/dL (8.5-10.1) Total Bilirubin 0.4 mg/dL (0.2-1.0) Aspartate Amino Transf (AST/SGOT) 18 U/L (15-37) Alanine Aminotransferase (ALT/SGPT) 26 U/L (14-59) Alkaline Phosphatase 29 U/L (46-116) Total Protein 5.7 g/dL (6.4-8.2) Albumin 3.0 g/dL (3.4-5.0) Albumin/Globulin Ratio 1.1 (1.0-1.7) Allergies Allergies Coded Allergies Type Severity Reaction Last Updated Verified Penicillins Allergy Intermediate hives 11/06/17 Yes naproxen Adverse Reaction Intermediate TOLERATES ASA 11/17/19 Yes Disposition/Orders: D/C to Home w/ HH Justicifation of Admission Dx: Justifications for Admission: Justification of Admission Dx: Yes SARKIS CARDENAS MD Nov 18, 2019 12:38
[2019-11-18] MEDS ORDERED: MULT1TAB90 PO (12:44)
[2019-11-18] MEDS ORDERED: ACET325T9 PO (12:44)
[2019-11-18] MEDS ORDERED: ENOX40DI3 SQ (12:44)
[2019-11-18] MEDS ORDERED: POLY17PO28 PO (12:44)
[2019-11-18] MEDS ORDERED: ASPI325T11 PO (12:44)
[2019-11-18] MEDS ORDERED: MAG30ORA2 PO (12:44)
[2019-11-18] MEDS ORDERED: BISA10SU4 PR (12:44)
[2019-11-18] MEDS ORDERED: GUAI100L12 PO (12:44)
[2019-11-18] MEDS ORDERED: DOCU-153 PO (12:44)
[2019-11-18] MEDS ORDERED: OXYC1TAB15 PO (12:44)
[2019-11-18] MEDS ORDERED: CHOL10003 PO (12:44)
--- NOTE | 2019-11-18 12:47 | SNU/HH DC ---
DISCHARGE WITH HOME HEALTH DISCHARGE INFORMATION: Final Diagnosis: Problems Medical Problems: (1) Intertrochanteric fracture of left femur Status: Acute Condition on Discharge: Stable CODE STATUS: Code Status: Full HOME HEALTH: Face to Face: I certify this patient is under my care and that I, or a nurse practitioner or physician's assistant housekeeping manager working with me, had a face to face encounter that meets the physician face to face encounter requirements with this patient on []. 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 For Eval/Treatment: Yes Physical Therapy For: Evalulation/Treatment Occupational Therapy For: Evaluation/Treatment Speech Language Pathology For: Evaluation/Treatment Home Health Aide For: Self-care THEATER MANAGER For: Community Resources Pt Meets Homebound Status: Limited distance walking POST DISCHARGE ORDERS: Activity Instructions for Disc: Activity as tolerated DIET AFTER DISCHARGE: Cardiac CHECKS AFTER DISCHARGE: Checks after discharge: Check blood press - daily TREATMENT/EQUIPMENT ORDERS: Adaptive Equipment Issued: Commode, Front wheeled walker CERTIFICATION STATEMENT: Certification Statement: Certification Statement: Based on the above finding, I certify that this patient is confined to the home and needs intermittent residential care, physical therapy and/or speech therapy, or continues to need occupational therapy.~ This patient is under my care, and I have initiated the establishment of the plan of care.~ This patient will be followed by myself or a community physician who will periodically review the plan of care. Home Meds Active Scripts Multivits,Ca,Minerals/Iron/Fa (THERA-M TABLET) 1 Each Tablet, 1 TAB PO DAILY for SUPPLEMENT for 30 Days, #30 TAB Prov:SARKIS CARDENAS MD 11/18/19 Cholecalciferol (Vitamin D3) (Vitamin D3) 25 Mcg Tablet, 1000 UNIT PO DAILY for BONE HEALTH for 30 Days, #30 TAB Prov:SARKIS CARDENAS MD 11/18/19 Polyethylene Glycol 3350 (POLYETHYLENE GLYCOL 3350) 17 Gm Powd.pack, 17 GM PO PRN DAILY PRN for CONSTIPATION for 30 Days, #30 PKT Prov:SARKIS CARDENAS MD 11/18/19 Docusate Sodium (DOK) 100 Mg Capsule, 100 MG PO PRN BID PRN for HARD STOOLS for 30 Days, #60 CAP Prov:SARKIS CARDENAS MD 11/18/19 Bisacodyl (BISACODYL) 10 Mg Supp.rect, [address] 1X PRN PRN for CONSTIPATION for 10 Days, #10 SUPP.RECT Prov:SARKIS CARDENAS MD 11/18/19 Mag Hydrox/Al Hydrox/Simeth (MAG-AL PLUS XS SUSPENSION) 30 Ml Oral.susp, 30 ML PO PRN DAILY PRN for HEARTBURN / GAS for 10 Days, #120 MISC Prov:SARKIS CARDENAS MD 11/18/19 Guaifenesin (GUAIFENESIN) 100 Mg/5 Ml Liquid, 200 MG PO PRN Q4HRS PRN for COUGH for 10 Days, #240 LIQUID Prov:SARKIS CARDENAS MD 11/18/19 Acetaminophen (TYLENOL) 325 Mg Tablet, 650 MG PO PRN Q4HRS PRN for TEMP OVER 100.4F OR MILD PAIN for 30 Days, #60 TAB Prov:SARKIS CARDENAS MD 11/18/19 Oxycodone/Apap 5-325 (PERCOCET 5-325 MG TABLET ) 1 Each Tablet, 2 TAB PO PRN Q4HRS PRN for SEVERE PAIN for 10 Days, #40 TAB Prov:SARKIS CARDENAS MD 11/18/19 Aspirin (ASPIRIN EC) 325 Mg Tablet.dr, 325 MG PO BID for HEART HEALTH for 30 Days, #60 TAB.SR Prov:SARKIS CARDENAS MD 11/18/19 Enoxaparin Sodium (ENOXAPARIN SODIUM) 40 Mg/0.4 Ml Disp.syrin, 40 MG SQ Q24H for DVT PROPHYLAXIS for 7 Days, #7 DIS.SYR Prov:SARKIS CARDENAS MD 11/18/19 Reported Medications Amlodipine Besylate (AMLODIPINE BESYLATE) 5 Mg Tablet, 5 MG PO HS for blood pressure, TAB 11/16/19 Cholestyramine (With Sugar) (QUESTRAN PACKET) 4 Gm Powd.pack, 1 PACKET PO BID for Diarrhea for 30 Days, #60 PACKET 0 Refills 11/16/19 Discontinued Reported Medications Aspirin (ASPIRIN EC) 81 Mg Tablet.dr, 1 TAB PO BID for blood thinner, #30 TAB 3 Refills 11/16/19 Lisinopril (LISINOPRIL) 40 Mg Tablet, 1 TAB PO HS for blood pressure, #30 TAB 5 Refills 11/16/19 SARKIS CARDENAS MD Nov 18, 2019 12:46
--- NOTE | 2019-11-18 13:40 | NUR ---
Discharge instructions and belongings reviewed with patient,verbalized understanding. Patient escorted out via wheelchair by Niya BUTTS accompanied by her family.
== END 2019-11-18 14:34 | disposition home health service (06) | DRG 481 ==
LOC: ER 21:31 → 4 NORTH 22:30
PROVIDERS: ADMIT Family Medicine; ATTEND Family Medicine
PROC: 0QS736Z Reposition Left Upper Femur with Intramedullary Internal Fixation Device, Percutaneous Approach (ICD-10-PCS; principal; 2019-11-16 12:15)
DX: S72.142A Displaced intertrochanteric fracture of left femur, initial encounter for closed fracture (principal); E44.1 Mild protein-calorie malnutrition; F17.210 Nicotine dependence, cigarettes, uncomplicated; I10 Essential (primary) hypertension; J44.9 Chronic obstructive pulmonary disease, unspecified; W01.0XXA Fall on same level from slipping, tripping and stumbling without subsequent striking against object, initial encounter; Z82.49 Family history of ischemic heart disease and other diseases of the circulatory system; Z82.5 Family history of asthma and other chronic lower respiratory diseases; Z90.49 Acquired absence of other specified parts of digestive tract; Z90.710 Acquired absence of both cervix and uterus; Z20.828 Contact with and (suspected) exposure to other viral communicable diseases; Z68.20 Body mass index [BMI] 20.0-20.9, adult
CPT/HCPCS: 36415; 71045; 73502; 73552; 76000; 80053; 82306; 85025; 85610; 85730; 86850; 86900; 86901; 87426; 93005; 94760; 96374; 96375; 99285; A4215; A7015; C1713; C1887; J1100; J1650; J2270; J2370; J2405; J2704; J3010; J3490; J7030; P9045; 97110-GP; 97116-GP; 97530-GO; 97535-GO; G0378; U0003-CS